=== PATIENT | female | born 1945 | race Caucasian/White ===

== ENCOUNTER → 2020-04-29 17:16 | Outpatient (CLI) | payer MEDICARE, BC, SELFPAY ==
[2020-04-29 17:28] LABS: Basophils % 0.1 % (0.1-2.0); Eosinophils % 0.4 % (0.1-12.0); Hematocrit 31.5 % (37.0-47.0); Lymphocytes # 0.8 K/mm3 (0.7-4.5); Mean Corpuscular HGB Conc 31.8 g/dL (31.8-35.4); Mean Corpuscular Volume 87.8 fl (81-99); Mean Platelet Volume 7.2 fl (7.4-10.4); Monocytes # 0.2 K/mm3 (0.1-1.0); Monocytes % 2.8 % (1.7-9.3); Neutrophils # 6.5 K/mm3 (1.8-7.8); Neutrophils % 86.8 % (37.0-80.0); Platelet Count 343 K/mm3 (142-424); Red Blood Count 3.59 M/mm3 (4.20-5.40); Red Cell Distribution Width 13.7 % (11.5-17.5); White Blood Count 7.5 K/mm3 (4.8-10.8)
[2020-04-29 17:31] LABS: MANUAL DIFFERENTIAL MANUAL DIFFERENTIAL (MANUAL DIFF)
[2020-04-29 17:57] LABS: Chloride 105 mmol/L (98-107); Potassium 4.5 mmoL/L (3.5-5.1); Sodium 137 mmol/L (136-145)
[2020-04-29 18:00] LABS: Alanine Aminotransferase 7 U/L (12-78); Albumin Level 3.7 g/dl (3.5-5.0); Albumin/Globulin Ratio 1.3 (1.1-1.8); Alkaline Phosphatase 76 U/L (38-126); Anion Gap 7.5 mEq/L (5-15); Aspartate Amino Transferase 22 U/L (14-36); Bilirubin,Total 0.4 mg/dl (0.2-1.3); Blood Urea Nitrogen 25 mg/dl (7-17); Carbon Dioxide 29 mmol/L (22.0-30.0); Estimated Glomerular Filt Rate 70 ml/min (>60); GFR (African American) 85 ML/MIN (>60); Globulin 2.9 g/dL (1.3-3.2); Total Protein,Serum 6.6 g/dl (6.3-8.2)
[2020-04-29 18:05] LABS: Acanthocytes 1+; Anisocytosis 1+; Lymphocytes % 16 % (10-50); Monocytes % 3 % (2-9); Neutrophils % 81 % (42-76); Platelet Estimate Normal; Poikilocytosis 1+; Total Cells Counted 100
[2020-04-29 18:07] LABS: Calcium 9.4 mg/dl (8.4-10.2)
[2020-04-29 18:24] LABS: Glucose 113 mg/dl (74-100)
== END ==
PROVIDERS: Visit Provider Family Medicine
DX: R09.89 Other specified symptoms and signs involving the circulatory and respiratory systems (principal)
CPT/HCPCS: 80053; 85007; 85025

== ENCOUNTER → 2020-07-01 17:54 | Outpatient (CLI) | payer MEDICARE, BC, SELFPAY ==
[2020-07-01 18:29] LABS: Basophils % 0.5 % (0.1-2.0); Eosinophils # 0.2 K/mm3 (0.0-0.4); Eosinophils % 3.5 % (0.1-12.0); Hematocrit 25.9 % (37.0-47.0); Lymphocytes # 1.1 K/mm3 (0.7-4.5); Mean Corpuscular Hemoglobin 24.8 pg (27.0-31.2); Mean Corpuscular Volume 82.7 fl (81-99); Mean Platelet Volume 7.5 fl (7.4-10.4); Monocytes # 0.4 K/mm3 (0.1-1.0); Monocytes % 5.6 % (1.7-9.3); Neutrophils # 4.4 K/mm3 (1.8-7.8); Neutrophils % 72.4 % (37.0-80.0); Platelet Count 289 K/mm3 (142-424); Red Blood Count 3.13 M/mm3 (4.20-5.40); Red Cell Distribution Width 14.7 % (11.5-17.5); White Blood Count 6.1 K/mm3 (4.8-10.8)
[2020-07-01 18:31] LABS: Hemoglobin 7.8 g/dL (12.2-16.2)
[2020-07-01 19:47] LABS: Alanine Aminotransferase 8 U/L (12-78); Albumin Level 3.6 g/dl (3.5-5.0); Albumin/Globulin Ratio 1.3 (1.1-1.8); Alkaline Phosphatase 91 U/L (38-126); Anion Gap 15.6 mEq/L (5-15); Aspartate Amino Transferase 27 U/L (14-36); Bilirubin,Total 0.3 mg/dl (0.2-1.3); Blood Urea Nitrogen 22 mg/dl (7-17); Calcium 9.7 mg/dl (8.4-10.2); Carbon Dioxide 26 mmol/L (22.0-30.0); Chloride 103 mmol/L (98-107); Estimated Glomerular Filt Rate 82 ml/min (>60); GFR (African American) 99 ML/MIN (>60); Globulin 2.8 g/dL (1.3-3.2); Glucose 117 mg/dl (74-100); Potassium 4.6 mmoL/L (3.5-5.1); Sodium 140 mmol/L (136-145); Total Protein,Serum 6.4 g/dl (6.3-8.2)
[2020-07-01 20:18] LABS: Thyroid Stimulating Hormone 1.54 uIU/mL (0.465-4.68)
== END ==
PROVIDERS: Visit Provider Family Medicine
DX: D64.9 Anemia, unspecified (principal)
CPT/HCPCS: 80053; 84443; 85025

== ENCOUNTER 2020-07-06 08:05 | Outpatient (CLI) | payer MEDICARE, BC, SELFPAY ==
[2020-07-06 08:17] VITALS: BMI 18.5
[2020-07-06 08:33] LABS: Basophils % 0.7 % (0.1-2.0); Eosinophils # 0.4 K/mm3 (0.0-0.4); Eosinophils % 6.1 % (0.1-12.0); Hematocrit 24.5 % (37.0-47.0); Lymphocytes # 1.3 K/mm3 (0.7-4.5); Mean Corpuscular HGB Conc 29.5 g/dL (31.8-35.4); Mean Corpuscular Hemoglobin 24.8 pg (27.0-31.2); Mean Corpuscular Volume 84.2 fl (81-99); Mean Platelet Volume 8.2 fl (7.4-10.4); Monocytes # 0.3 K/mm3 (0.1-1.0); Monocytes % 5.9 % (1.7-9.3); Neutrophils # 3.7 K/mm3 (1.8-7.8); Neutrophils % 65.3 % (37.0-80.0); Platelet Count 292 K/mm3 (142-424); Red Blood Count 2.91 M/mm3 (4.20-5.40); Red Cell Distribution Width 15.4 % (11.5-17.5); White Blood Count 5.7 K/mm3 (4.8-10.8)
[2020-07-06 08:36] LABS: Hemoglobin 7.2 g/dL (12.2-16.2)
--- NOTE | 2020-07-06 11:00 | PC.NURSE ---
per lab pt has antibodies in her blood and will have to wait for special blood product from [facility]. will take a couple hours before the blood gets to the hospital. pt ok with waiting.
--- NOTE | 2020-07-06 13:40 | PC.NURSE ---
1340-pt decided not to wait on the blood to get back from [facility], pt will return in the am for transfusion; left forearm 22g iv left in arm per pt request wrapped with 2x2 and coban.
== END 2020-07-06 13:40 | disposition home or self-care (01) ==
LOC: INF 08:15
PROVIDERS: Visit Provider Family Medicine
DX: D64.9 Anemia, unspecified (principal)
CPT/HCPCS: 36415; 85025; 86850; 86870

== ENCOUNTER 2020-07-07 08:10 | Outpatient (CLI) | payer MEDICARE, BC, SELFPAY ==
[2020-07-07] VITALS (22 sets, daily range): BP systolic 104–162; BP diastolic 43–83; PULSE 60–68; RESP 18–22; TEMP 36.4–36.8; O2SAT 95–97; BMI 18.5
--- NOTE | 2020-07-07 13:06 | PC.NURSE ---
0855 Transfusion of 1st unit of PRBC's initiated at this time. Lungs with occasional expiratory wheeze noted throughout, no rales. VSS. No edema. IV patent. Reviewed s/s blood transfusion reaction/intolerance with patient who verbalizes understanding. Resp unlabored, O2 in use at 2lpm per nc/pt home O2 dependent. 0955 Pt tolerating blood well with no problems noted and no s/s transfusion reaction. Denies complaints at this time. VSS. 1055 Pt continues to tolerate blood well. Pt denies complaints of problems. No s/s transfusion reaction. Pt dozes at intervals but awakens easily for assessment. IV patent. Lungs consistent with baseline assessment, no rales. 1120 Transfusion of 1st unit of PRBC's complete at this time. VSS. Pt denies complaints.No s/s transfusion reaction or problems seen. 1132 Pt medicated with Lasix 20mg IV at this time per MD order. Pt to receive Lasix 20mg IV after each unit of blood.
--- NOTE | 2020-07-07 13:15 | PC.NURSE ---
1200 Transfusion of 2nd unit of PRBC's initiated at this time. VSS. Reviewed s/s of transfusion reaction/intolerance with pt, who verbs understanding of same. IV patent. Resp unlabored/O2 in use as pt home O2 dependent at 2lpm per nc. Skin warm/dry to touch. Pt denies complaints at this time. Lungs consistent with prior assessment/baseline with scatt exp wheezes, no rales. 1240 Pt up to BSC to void at this time. Pt voided 300ml clear yellow urine. 1300 Pt tolerating 2nd unit of blood well with no s/s transfusion reaction/no problems noted. VSS. IV patent. Pt denies complaints and is talking with staff at intervals. A&Ox3
--- NOTE | 2020-07-07 14:57 | PC.NURSE ---
1400 Pt dozing at intervals/awakens easily for assessment. Pt denies complaints. VSS. O2 in use at 2 lpm per NC/no change in lung sounds or resp status from baseline assessment. Skin warm/dry to touch. No s/s transfusion reaction noted at this time. 1415 2nd unit of blood complete at this time. Pt up to BSC to void/250ml clear yellow urine voided at this time. BP slightly elevated, will monitor/pt denies any headache, dizziness. Patient reports BP elevated at times/took BP medication this am at 0630, which she states she normally takes at 1200 noon. Skin warm/dry to touch. Pt talking/laughing with staff.
[2020-07-07 15:52] LABS: Hemoglobin 10.6 g/dL (12.2-16.2)
--- NOTE | 2020-07-07 16:23 | PC.NURSE ---
1515 VSS. Patient has tolerated blood transfusion well. No s/s transfusion reaction or problems noted. Patient denies complaints. Resp unlabored. Pt will be discharged home once 1 hour post transfusion H&H obtained. Reviewed s/s transfusion reaction with patient who verbalizes understanding.
== END 2020-07-07 15:45 | disposition home or self-care (01) ==
LOC: INF 08:10
PROVIDERS: Visit Provider Family Medicine
DX: D64.9 Anemia, unspecified (principal)
CPT/HCPCS: 36430; 85014; 85018; P9016

== ENCOUNTER → 2020-08-02 18:15 | Outpatient (CLI) | payer MEDICARE, BC, SELFPAY ==
[2020-08-02 18:37] LABS: Basophils % 0.7 % (0.1-2.0); Eosinophils # 0.2 K/mm3 (0.0-0.4); Eosinophils % 3.6 % (0.1-12.0); Hematocrit 32.9 % (37.0-47.0); Hemoglobin 9.9 g/dL (12.2-16.2); Lymphocytes # 1.2 K/mm3 (0.7-4.5); Mean Corpuscular HGB Conc 30.2 g/dL (31.8-35.4); Mean Corpuscular Hemoglobin 26.8 pg (27.0-31.2); Mean Corpuscular Volume 88.9 fl (81-99); Mean Platelet Volume 7.3 fl (7.4-10.4); Monocytes # 0.4 K/mm3 (0.1-1.0); Monocytes % 7.6 % (1.7-9.3); Neutrophils # 3.8 K/mm3 (1.8-7.8); Neutrophils % 67.1 % (37.0-80.0); Platelet Count 268 K/mm3 (142-424); Red Cell Distribution Width 16.7 % (11.5-17.5); White Blood Count 5.7 K/mm3 (4.8-10.8)
== END ==
PROVIDERS: Visit Provider Family Medicine
DX: D64.9 Anemia, unspecified (principal)
CPT/HCPCS: 85025

== ENCOUNTER → 2020-09-02 18:06 | Outpatient (CLI) | payer MEDICARE, BC, SELFPAY ==
[2020-09-02 18:29] LABS: Basophils # 0.1 K/mm3 (0-0.2); Basophils % 1.1 % (0.1-2.0); Eosinophils # 0.2 K/mm3 (0.0-0.4); Eosinophils % 4.7 % (0.1-12.0); Hematocrit 30.6 % (37.0-47.0); Hemoglobin 9.7 g/dL (12.2-16.2); Lymphocytes # 1.1 K/mm3 (0.7-4.5); Lymphocytes % 22.2 % (10-50); Mean Corpuscular HGB Conc 31.7 g/dL (31.8-35.4); Mean Corpuscular Hemoglobin 28.3 pg (27.0-31.2); Mean Corpuscular Volume 89.3 fl (81-99); Mean Platelet Volume 7.7 fl (7.4-10.4); Monocytes # 0.3 K/mm3 (0.1-1.0); Monocytes % 6.5 % (1.7-9.3); Neutrophils # 3.3 K/mm3 (1.8-7.8); Neutrophils % 65.6 % (37.0-80.0); Platelet Count 269 K/mm3 (142-424); Red Blood Count 3.43 M/mm3 (4.20-5.40); Red Cell Distribution Width 16.9 % (11.5-17.5)
== END ==
PROVIDERS: Visit Provider Family Medicine
DX: R62.7 Adult failure to thrive (principal)
CPT/HCPCS: 85025

== ENCOUNTER → 2020-09-14 12:22 | Outpatient (CLI) | payer MEDICARE, BC, SELFPAY ==
--- NOTE | 2020-09-14 12:38 | CT_ITS ---
PROCEDURE: CT ANGIO CHEST CLINCIAL INDICATION: f/u pulm embolism Follow-up pulmonary embolus COMPARISON: No exams were available for comparison TECHNIQUE: IV Contrast: 70ML Isovue 370 Axial images obtained with sagittal and coronal reformats. All CT scans at the facility use one or more dose reduction, viz: automated exposure control, ma/kV adjustment per patient size (including targeted exams where dose is matched to indication, i.e. head), or iterative reconstruction technique. FINDINGS: HEART AND MEDIASTINAL STRUCTURES: There are atherosclerotic changes of the aorta. No evidence of aortic dissection. There is a small saccular aneurysm versus a ulceration along the anterior medial aspect of the descending thoracic aorta the level of the right main pulmonary artery. This measures approximately 1 cm and was described on the previous exam. That study is not available for review performed at an outside institution. No evidence of pulmonary embolus. There is thickening of the pericardium consistent with small pericardial effusion. The thickness measures up to 9 mm. LUNGS AND PLEURAL SPACES: COPD changes. Scattered areas of scarring and/or atelectatic change. BONY STRUCTURES: Degenerative changes thoracic spine UPPER ABDOMEN: . There is a moderate-sized hiatal hernia. Left renal artery stent is present. There is some scarring in the left kidney noted. Left renal artery stent is in place. ADDITIONAL FINDINGS: No other significant abnormalities. IMPRESSION: 1. No evidence of pulmonary embolus. 2. Atherosclerotic changes of the aorta with a small saccular aneurysm versus prominent ulceration along the anterior medial aspect of the descending thoracic aorta. 3. COPD/centrilobular emphysema with scattered areas of scarring and/or atelectatic change. 4. Moderate-sized hiatal hernia Dictated by: Candido Dan MD 09/16/2020 07:01 Candido Dan MD in [place] 09/16/2020 07:01
[2020-09-14 13:09] LABS: Chloride 102 mmol/L (98-107); Potassium 4.4 mmoL/L (3.5-5.1); Sodium 136 mmol/L (136-145)
[2020-09-14 13:12] LABS: Anion Gap 11.4 mEq/L (5-15); Blood Urea Nitrogen 28 mg/dl (7-17); Carbon Dioxide 27 mmol/L (22.0-30.0); Estimated Glomerular Filt Rate 70 ml/min (>60); GFR (African American) 85 ML/MIN (>60)
[2020-09-14 13:13] LABS: Calcium 9.9 mg/dl (8.4-10.2); Glucose 95 mg/dl (74-100)
== END ==
PROVIDERS: PCP Family Medicine; Visit Provider Family Medicine
DX: Z01.818 Encounter for other preprocedural examination (principal); I26.99 Other pulmonary embolism without acute cor pulmonale
CPT/HCPCS: 36415; 71275; 80048; Q9967

== ENCOUNTER → 2020-11-18 17:13 | Outpatient (CLI) | payer MEDICARE, BC, SELFPAY ==
[2020-11-18 17:47] LABS: Basophils % 0.7 % (0.1-2.0); Eosinophils # 0.2 K/mm3 (0.0-0.4); Eosinophils % 3.7 % (0.1-12.0); Hematocrit 34.1 % (37.0-47.0); Hemoglobin 10.4 g/dL (12.2-16.2); Lymphocytes # 1.2 K/mm3 (0.7-4.5); Lymphocytes % 20.5 % (10-50); Mean Corpuscular HGB Conc 30.6 g/dL (31.8-35.4); Mean Corpuscular Hemoglobin 26.6 pg (27.0-31.2); Mean Corpuscular Volume 87.2 fl (81-99); Mean Platelet Volume 7.9 fl (7.4-10.4); Monocytes # 0.4 K/mm3 (0.1-1.0); Monocytes % 6.1 % (1.7-9.3); Platelet Count 318 K/mm3 (142-424); Red Blood Count 3.92 M/mm3 (4.20-5.40); White Blood Count 5.7 K/mm3 (4.8-10.8)
[2020-11-18 17:58] LABS: Chloride 102 mmol/L (98-107)
[2020-11-18 17:59] LABS: Potassium 4.3 mmoL/L (3.5-5.1); Sodium 138 mmol/L (136-145)
[2020-11-18 18:01] LABS: Alanine Aminotransferase 7 U/L (12-78); Aspartate Amino Transferase 26 U/L (14-36); Blood Urea Nitrogen 29 mg/dl (7-17); Estimated Glomerular Filt Rate 61 ml/min (>60); GFR (African American) 74 ML/MIN (>60)
[2020-11-18 18:02] LABS: Albumin Level 4.1 g/dl (3.5-5.0); Albumin/Globulin Ratio 1.4 (1.1-1.8); Alkaline Phosphatase 109 U/L (38-126); Anion Gap 11.3 mEq/L (5-15); Bilirubin,Total 0.4 mg/dl (0.2-1.3); Carbon Dioxide 29 mmol/L (22.0-30.0); Glucose 74 mg/dl (74-100); Iron 44 ug/dL (37-170); Total Protein,Serum 7.1 g/dl (6.3-8.2)
== END ==
PROVIDERS: Visit Provider Family Medicine
DX: D64.9 Anemia, unspecified (principal); R10.9 Unspecified abdominal pain; R62.7 Adult failure to thrive
CPT/HCPCS: 80053; 83540; 85025

== ENCOUNTER → 2020-12-13 08:00 | Outpatient (CLI) | payer MEDICARE, BC, SELFPAY ==
--- NOTE | 2020-12-13 08:04 | CT_ITS ---
PROCEDURE: CT ABDOMEN WO CON CLINICAL HISTORY: Mid to right abd pain Cramping COMPARISON: No exams were available for comparison TECHNIQUE: Axial images obtained with sagittal and coronal reformats. All CT scans at the facility use one or more dose reduction, viz: automated exposure control, ma/kV adjustment per patient size (including targeted exams where dose is matched to indication, i.e. head), or iterative reconstruction technique. FINDINGS: Atelectatic or fibrotic changes are present in the lung bases. There is mild thickening of the pericardium at 4 mm. There is a medium-sized hiatal hernia. The spleen, adrenal glands, and gallbladder have an unremarkable appearance. There is pancreatic atrophy. Cortical scarring involves the left kidney posteriorly and inferiorly. Bilateral renal calcifications are present which are felt to be vascular. A 2 mm stone is present in the upper pole of the right kidney. There is an exophytic 8 mm hypodensity projecting off the right kidney laterally may be due to small cyst. A left renal stent is present in the renal artery. There is a moderate amount of retained colonic feces. There is degenerative disc disease in the lumbar spine. There is mild saccular the dilatation of the infrarenal abdominal aorta at 2.4 cm IMPRESSION: 1. Hiatal hernia. 2. Moderate amount of retained colonic feces 3. Saccular dilatation of the infrarenal abdominal aorta at 2.4 cm.. Dictated by: Candido Dan MD 12/14/2020 14:55 Candido Dan MD in [place] 12/14/2020 14:55
--- NOTE | 2020-12-13 08:04 | US_ITS ---
PROCEDURE: US GALLBLADDER CLINICAL INDICATION: ruq pain for 3 months COMPARISON: CT CT ABDOMEN WO CON from 12/13/2020 FINDINGS: Pancreas: Unremarkable/though a portion of the tail is obscured by bowel gas. Liver: The liver is normal in size and shows slightly overall increased and coarsened echogenicity suggesting mild fatty infiltration. There is appropriate direction of blood flow within a non dilated portal vein. Right kidney: The right kidney measures 8.7 x 4.1 by 5.6 cm and appears sonographically normal. Gallbladder: The gallbladder is normal in size and shows mild diffuse wall thickening. There is a small amount of biliary sludge, there are no definite calcified gallstones seen. The common bile duct is upper limits of normal in caliber. IMPRESSION: Mild diffuse hepatic steatosis, small amount of biliary sludge and mild gallbladder wall thickening suggesting possibly a mild chronic cholecystitis Dictated by: Dr. Didier Quinonez MD 12/13/2020 16:26 Dr. Didier Quinonez MD in [place] 12/13/2020 16:26
== END ==
PROVIDERS: PCP Family Medicine; Visit Provider Family Medicine
DX: R10.11 Right upper quadrant pain (principal)
CPT/HCPCS: 74150; 76705

== ENCOUNTER → 2020-12-23 17:06 | Outpatient (CLI) | payer MEDICARE, BC, SELFPAY ==
[2020-12-23 17:58] LABS: Basophils % 0.5 % (0.1-2.0); Eosinophils # 0.1 K/mm3 (0.0-0.4); Eosinophils % 1.9 % (0.1-12.0); Hematocrit 32.7 % (37.0-47.0); Hemoglobin 10.1 g/dL (12.2-16.2); Lymphocytes % 14.3 % (10-50); Mean Corpuscular HGB Conc 30.8 g/dL (31.8-35.4); Mean Corpuscular Volume 87.7 fl (81-99); Mean Platelet Volume 7.8 fl (7.4-10.4); Monocytes # 0.4 K/mm3 (0.1-1.0); Monocytes % 5.2 % (1.7-9.3); Neutrophils # 5.2 K/mm3 (1.8-7.8); Platelet Count 249 K/mm3 (142-424); Red Blood Count 3.73 M/mm3 (4.20-5.40); Red Cell Distribution Width 15.7 % (11.5-17.5); White Blood Count 6.7 K/mm3 (4.8-10.8)
== END ==
PROVIDERS: Visit Provider Family Medicine
DX: I25.10 Atherosclerotic heart disease of native coronary artery without angina pectoris (principal); R62.7 Adult failure to thrive
CPT/HCPCS: 85025

== ENCOUNTER 2021-05-01 14:10 | Inpatient (IN) | payer MEDICARE, BC, SELFPAY ==
[2021-05-01 14:14] VITALS: BMI 23.0
[2021-05-01 14:40] VITALS: O2SAT 100
--- NOTE | 2021-05-01 14:42 | XR_ITS ---
PROCEDURE INFORMATION: Exam: XR Chest Exam date and time: 05/01/2021 2:42 PM Age: 75 years old Clinical indication: Shortness of breath; Patient HX: SOA, pneumonia, nonsmoker TECHNIQUE: Imaging protocol: XR of the chest. Views: 2 views. COMPARISON: CT ANGIO CHEST 09/14/2020 1:57 PM FINDINGS: Lungs: See Pleural spaces finding. Pleural spaces: o pneumothorax. No significant effusions. Probable hiatal hernia seen. Subtle bibasilar opacities are noted which could represent pneumonia, atelectasis, or infiltrate. Follow-up recommended to ensure resolution. Heart/Mediastinum: See Pleural spaces finding. Bones/joints: Unremarkable. IMPRESSION: Subtle bibasilar opacities are noted which could represent pneumonia, atelectasis, or infiltrate. Follow-up recommended to ensure resolution.
[2021-05-01 15:05] LABS: Coronavirus 19, PCR Not Detected (NotDetected); Influenza A, PCR Not Detected (NotDetected); Influenza B, PCR Not Detected (NotDetected)
[2021-05-01 15:16] LABS: Lymphocytes % 3.6 % (10-50); Mean Corpuscular HGB Conc 30.4 g/dL (31.8-35.4); Mean Corpuscular Hemoglobin 24.5 pg (27.0-31.2); Mean Corpuscular Volume 80.5 fl (81-99); Mean Platelet Volume 8.3 fl (7.4-10.4); Monocytes # 0.9 K/mm3 (0.1-1.0); Monocytes % 3.4 % (1.7-9.3); Neutrophils # 25.3 K/mm3 (1.8-7.8); Neutrophils % 92.9 % (37.0-80.0); Platelet Count 370 K/mm3 (142-424); Red Blood Count 2.98 M/mm3 (4.20-5.40); Red Cell Distribution Width 15.5 % (11.5-17.5); White Blood Count 27.2 K/mm3 (4.8-10.8)
--- NOTE | 2021-05-01 15:20 | ECG_ITS ---
APPROVED REPORT Exam: Resting ECG HR:71 bpm ECG Measurements Heart Rate 71 AXES GA 158 P 79 QRSd 144 QRS -65 QT 430 T 43 QTc 467 Conclusion Normal sinus rhythm Right bundle branch block Left anterior fascicular block Bifascicular block Abnormal ECG Electronically signed by : Linwood Hansen, 05/03/2021 21:40:35
--- NOTE | 2021-05-01 15:21 | HMH.CNCARD ---
History of Present Illness Consult date: 05/01/21 Requesting physician: Shiraz Ames Consult reason: chest pain Chief complaint: CHest pain Additional Medical History:: 1. Ex-smoker, previously smoked at least 1 pack/day for 43 years A. COPD 2. Coronary artery disease with history of coronary artery stenting by Dr. Zamora in the past 3. Hypertension 4. Hyperlipidemia 5. History of pulmonary embolus and DVT with treatment including Xarelto, greater than 1 year ago 6. History of congestive heart failure 7. Renal artery stenosis with history of stenting of the left renal artery History of present illness: 75-year-old white female with known coronary disease, hypertension, hyperlipidemia, COPD and pneumonia who was admitted for complaint of chest pain across the precordium, into the right side underneath the arm and into the right arm that is worse with deep breathing and cough. She reports recent hospitalization at [facility] with a CAT scan of the chest showing evidence of pneumonia. No evidence of pulmonary embolus noted (prior treatment in the past for this). Patient relates she is being admitted for an abnormal lab value of 7.1 (assuming this is her hemoglobin) but I do not have any lab data at this time to confirm. EKG is pending Labs pending [facility] History Medical History: Reports:: Congestive Heart Failure, Chronic Obstructive Pulmonary Disease (COPD), Coronary Artery Disease, Deep Vein Thrombosis, Hiatal Hernia, Home Oxygen, Hyperlipidemia, Hypertension, Lung Disease Denies:: Cancer, Diabetes Mellitus Type 1, Diabetes Mellitus Type 2, MRSA *Have you ever received a pneumonia vaccine?: Yes *Have you received a flu vaccine this season?: Yes Other Medical History: Reports: Anemia, Arthritis, Cataracts, Glaucoma Laterality Cases: Bilateral: Cataract Other Surgeries: Yes: Cardiac Catheterization, Colonoscopy, Coronary Stent, EGD, Hysterectomy-Total Amputation: No - *Social History Last grade of school completed: Advanced degree Smoking Status: Former smoker Tobacco Type: cigarettes # Packs/Day (cigarettes): 1 #Yrs smoked (if former smoker): 43 Alcohol Intake: never Substance Use Type: denies use *Occupational Status:: retired Housing: house Household Members: spouse, family *Travel in the last 8 weeks: None Family Hx:: Cancer, Coronary Artery Disease, Diabetes, Heart Attack, Hypertension, Thyroid Disorder, Substance abuse Meds Home Medications Medication Instructions Recorded Confirmed Type acetaminophen 300 mg-codeine 30 mg 1 tab PO TID PRN #90 tab 11/04/20 05/01/21 Rx tablet guaifenesin 600 mg tablet, 600 mg PO Q12H PRN #60 tab 02/22/21 05/01/21 Rx extended release 12 hr Clopidogrel Bisulfate [Plavix] See Rx Instructions .ROUTE .COMPLEX 05/01/21 05/01/21 History Trazodone HCl See Rx Instructions .ROUTE .COMPLEX 05/01/21 05/01/21 History carvediloL [Carvedilol 12.5mg Tab] See Rx Instructions .ROUTE .COMPLEX 05/01/21 05/01/21 History Allergies Allergy/AdvReac Type Severity Reaction Status Date / Time No Known Allergies Allergy Verified 05/01/21 13:15 Exam I & O for Last 24 hours: Intake & Output 04/29/21 04/30/21 05/01/21 05/02/21 11:59 11:59 11:59 11:59 Weight 151 lb 4 oz - Constitutional no acute distress - *Routine HEENT Exam Head: Present: normocephalic Eye: Present: EOMI, PERRL ENT: Present: mucous membranes moist - *Routine Neck Exam Present: supple. Absent: lymphadenopathy - Routine Chest/Breast/Axilla Exam Chest wall: Present: tenderness - *Routine Respiratory Exam Present: CTA bilaterally - *Routine Cardiovascular Exam Present: RRR - *Routine Abdominal Exam Present: soft, normoactive bowel sounds. Absent: tenderness - *Routine Extremities Exam Absent: cyanosis, clubbing, edema - *Routine Skin Exam Present: warm. Absent: rash - *Routine Neurological Exam Present: alert, oriented X3 Review of Systems - Review of Syst
[2021-05-01 15:23] LABS: Chloride 103 mmol/L (98-107); Potassium 4.7 mmoL/L (3.5-5.1); Sodium 138 mmol/L (136-145)
[2021-05-01 15:24] LABS: Hemoglobin 7.3 g/dL (12.2-16.2)
--- NOTE | 2021-05-01 15:24 | PC.NURSE ---
lab called stating patient had hgb of 7.3 and hematocrit of 24. verified patient name and birthdate, with shanice altman
[2021-05-01 15:25] LABS: MANUAL DIFFERENTIAL MANUAL DIFFERENTIAL (MANUAL DIFF)
[2021-05-01 15:26] LABS: Alanine Aminotransferase 10 U/L (12-78); Albumin Level 3.7 g/dl (3.5-5.0); Albumin/Globulin Ratio 1.2 (1.1-1.8); Alkaline Phosphatase 100 U/L (38-126); Anion Gap 14.7 mEq/L (5-15); Aspartate Amino Transferase 21 U/L (14-36); Bilirubin,Total 0.3 mg/dl (0.2-1.3); Blood Urea Nitrogen 27 mg/dl (7-17); Calcium 9.5 mg/dl (8.4-10.2); Carbon Dioxide 25 mmol/L (22.0-30.0); Creatinine Clearance Estimated 53 mL/min (50-200); Estimated Glomerular Filt Rate 61 ml/min (>60); GFR (African American) 74 ML/MIN (>60); Globulin 3.2 g/dL (1.3-3.2); Glucose 104 mg/dl (74-100); Iron 17 ug/dL (37-170); Total Protein,Serum 6.9 g/dl (6.3-8.2)
--- NOTE | 2021-05-01 15:32 | CA_ITS ---
APPROVED REPORT EXAM: Comprehensive 2D, Doppler, and color-flow Echocardiogram Electrical Technology Instructor: Katherine Cao RVT Ht: 5 ft 8 in Wt: 151lbs BSA: 1.81 BP: 133/68 mmHg Indications: CP,ANEMIA,PNEUMONIA,COPD,ANEMIA,CAD,HX CHF,HOME O2,HTN,HLD,EX SMOKER 2D Dimensions LVOT 2.05 cm (M/F) 1.5-2.5 LA Volume 28.80 mL LA Volume Index 15.91 mL/m2 (M/F) 16-34 M-Mode Dimensions RVDd 3.19 cm (0.9-2.6) LA Diam 4.05 cm (1.9-4.0) LVDd 3.75 cm (3.5-5.7) Ao Diam 3.32 cm (2.0-3.7) LVDs 2.65 cm (3.5-5.7) IVSd 1.67 cm (0.6-1.1) PWd 0.91 cm (0.6-1.1) EF (Teich) 57.00% FS 29.30% EDV (Teich) 60.00 mL TAPSE 2.64 (<1.7) ESV (Teich) 25.80 mL LV Diastology E Decel Time 150.00 (160-240 msec) E/A Ratio 0.8 MED E' 4.40 (< 7 cm/sec) E'/MED E' Ratio 16.27 (>14) LAT E' 8.70 (<10 cm/sec) E/LAT E' Ratio 8.23 (>14) Aortic Valve AO Peak GR. 5.40 mmHg Mitral Valve MV E Max Joseph. 72.00 (40-130 cm/s) MV A Velocity 88.00 (40-130 cm/s) E/A Ratio 0.82 MV Decel. Time 150.00 (160-240 ms) MV PHT 44.00 ms Pulmonary Valve PV Peak Velocity 66.00 (50-150 cm/s) Left Ventricle Left atrium is mildly enlarged, left ventricle is normal size, mild concentric left ventricular hypertrophy, visually estimated ejection fraction 55% with no regional wall motion abnormality, diastolic parameters are inconclusive. Right Ventricle Right atrium and right ventricle are mildly enlarged with normal contractility. Aortic Valve Aortic valve is minimally thickened and fibrosed. There is no aortic stenosis or aortic insufficiency. Mitral Valve Mitral valve grossly normal, there is mild mitral regurgitation. Tricuspid Valve Tricuspid grossly normal, there is mild tricuspid regurgitation, tricuspid regurgitation jet velocity is inadequate for calculation of the right ventricular systolic pressure. Pulmonic Valve Pulmonic valve is poorly visualized. Great Vessels Aortic root is normal size. Pericardium No significant pericardial effusion noted. Conclusion 1. Mild biatrial abdomen, normal left ventricular size, mild concentric left ventricular hypertrophy, visually estimated ejection fraction 55% with no regional wall motion abnormality, diastolic parameters are inconclusive. 2. Mildly enlarged right ventricle with normal contractility. 3. Mild mitral and tricuspid regurgitation. 4. No significant pericardial effusion noted. Electronically signed by : Ric Oconnor, 05/01/2021 22:57:22
[2021-05-01 15:35] LABS: ABG Base Excess -0.7 mmol/L (-2.4-2.3); ABG Oxygen Saturation 97 % (90-100); ABG PCO2 39.1 mmhg (35.0-45.0); ABG PH 7.41 mmol/L (7.35-7.45); ABG PO2 88.8 mmhg (80-100); ABG TCO2 25.2 mmhg (23-27)
[2021-05-01 15:36] LABS: Allen's Test Acceptable; Oxygen 3 LPM NC %; Source Left Radial
[2021-05-01 15:37] LABS: Total Iron Binding Capacity 334 ug/dL (265-497)
[2021-05-01 15:38] LABS: Troponin I < 0.01 ng/ml (0.00-0.034)
[2021-05-01 15:43] LABS: Procalcitonin 0.397 ng/mL (0.0-2.0)
--- NOTE | 2021-05-01 15:52 | PC.NURSE ---
notified of racqueltccynthia h/h. ordered to transfuse 3 units
[2021-05-01 16:00] VITALS: BP 160/95; PULSE 70; PULSE 81; RESP 18; TEMP 37.1; O2SAT 100
[2021-05-01 17:30] LABS: Lymphocytes % 6 % (10-50); Monocytes % 3 % (2-9); Neutrophils % 89 % (42-76); Total Cells Counted 100
[2021-05-01 17:31] LABS: Microcytosis 1+; Platelet Estimate Normal
[2021-05-01 17:32] LABS: Hypochromasia 2+
--- NOTE | 2021-05-01 17:54 | HMH.HP ---
*Admission Date: 05/01/21 *Chief complaint: pneumonia and anemia *History of present illness: Patient is a 75-year-old white female, well-known to me from the office, who was seen today for ER follow-up. She presented to the emergency room at [facility] yesterday for intractable coughing and right-sided chest pain. Her work-up included a chest x-ray which showed bibasilar infiltrative processes, a CTA of her chest which was negative for pulmonary emboli, and venipuncture lab work showed a hemoglobin of 7.1. She was sent out with a prescription for Tussionex and Levaquin. She declined admission there in favor of follow-up with us. Patient has a history of stented coronary disease, and is on Plavix. Patient has a history of multiple pulmonary emboli, and had been on Xarelto in the past. Once resolution of the emboli was demonstrated on CTA the Xarelto was stopped. There was a point when Xarelto and Plavix overlapped, and during that time she required transfusion of several units of packed red cells. Patient relays that within the past few years she has had upper and lower endoscopy by Dr. Barclay in [place]. She relays that these were unremarkable. He did have her slated for a gastric emptying time, which she did not complete. She has had no evidence of hematemesis or dark stool. Her principal complaint is intractable coughing with right sided chest pain. She is admitted for further evaluation and treatment. Patient has a longstanding history of COPD, is oxygen dependent at home, and has a propensity for pneumonia. [facility] History Medical History: Reports:: Congestive Heart Failure, Chronic Obstructive Pulmonary Disease (COPD), Coronary Artery Disease, Deep Vein Thrombosis, Hiatal Hernia, Home Oxygen, Hyperlipidemia, Hypertension, Lung Disease Denies:: Cancer, Diabetes Mellitus Type 1, Diabetes Mellitus Type 2, MRSA *Have you ever received a pneumonia vaccine?: Yes *Have you received a flu vaccine this season?: Yes Other Medical History: Reports: Anemia, Arthritis, Cataracts, Glaucoma Laterality Cases: Bilateral: Cataract Other Surgeries: Yes: Cardiac Catheterization, Colonoscopy, Coronary Stent, EGD, Hysterectomy-Total Amputation: No - *Social History Last grade of school completed: Advanced degree Smoking Status: Former smoker Tobacco Type: cigarettes # Packs/Day (cigarettes): 1 #Yrs smoked (if former smoker): 43 Alcohol Intake: never Substance Use Type: denies use *Occupational Status:: retired Housing: house Household Members: spouse, family *Travel in the last 8 weeks: None Family Hx:: Cancer, Coronary Artery Disease, Diabetes, Heart Attack, Hypertension, Thyroid Disorder, Substance abuse Review of Systems - Constitutional Reports anorexia, Reports fatigue, Reports lack of energy, Reports weakness - Eyes Denies change in vision - ENT Reports dizziness, Reports hoarseness - *Cardiovascular Reports chest pain, Reports shortness of breath - *Respiratory Reports chest congestion, Reports cough, Reports shortness of breath, Reports shortness of breath with activity, Reports pain on inspiration, Reports pain with cough, Denies coughing up blood - *Gastrointestinal Denies abdominal pain, Denies change in stools, Denies coffee ground vomit, Denies bright, red blood in stools, Denies black, tarry stools, Denies constant urge to pass stool - *Genitourinary Reports side pain, Denies difficulty urinating - *Musculoskeletal Reports joint pain, Reports decreased muscle mass, Reports back pain, Reports muscle weakness - Integumentary/Breasts Reports unusual bruising, Denies yellowing of the skin - *Neurologic Reports unsteadiness, Reports weakness - Psychiatric Denies behavioral changes - Endocrine Denies rapid, pounding, or irregular heartbeat - Hematologic/Lymphatic Reports easy bruising - Allergic/Immunologic Denies hives Meds Home Medications Medication Instructions Recorded Confirmed Type
--- NOTE | 2021-05-01 19:38 | PC.NURSE ---
called lab to check on status of blood ordered earlier in day. was informed patient has two different antibodies and [facility] has just picked sample up for further matching. patient awake alert, orient and asymptomatic
[2021-05-01 20:00] VITALS: BP 156/51; PULSE 70; RESP 20; TEMP 36.7; O2SAT 100
--- NOTE | 2021-05-01 20:12 | PC.NURSE ---
o2 sats 100 on 3 l nc, chantell states she wears 2 l at home. oxygen decreased to 2 l nc
--- NOTE | 2021-05-01 20:56 | PC.NURSE ---
Snack passed and trash pulled
[2021-05-01 22:00] VITALS: BP 138/55; PULSE 68; RESP 20; O2SAT 93
[2021-05-02] VITALS (37 sets, daily range): BP systolic 121–225; BP diastolic 51–119; PULSE 59–99; RESP 15–26; TEMP 36.6–37.3; O2SAT 93–100; BMI 23.3
--- NOTE | 2021-05-02 06:00 | XR_ITS ---
PROCEDURE INFORMATION: Exam: XR Chest Exam date and time: 05/02/2021 6:00 AM Age: 75 years old Clinical indication: Cough and shortness of breath and other: Pneumnia; Patient HX: Pneumonia TECHNIQUE: Imaging protocol: XR of the chest. Views: 1 view. COMPARISON: CR XR CHEST 2V 05/01/2021 4:44 PM FINDINGS: Lungs: Unremarkable. No consolidation. There is no focal mass. Pleural spaces: Unremarkable. No pleural effusion. No pneumothorax. Heart/Mediastinum: Moderate hiatal hernia. Bones/joints: Unremarkable. There is no acute fracture present. IMPRESSION: 1. No evidence for acute cardiac or pulmonary process. 2. Moderate hiatal hernia.
--- NOTE | 2021-05-02 06:44 | PC.NURSE ---
received blood from [facility] 1st unit of blood started at 0610, no reactions noted
--- NOTE | 2021-05-02 07:43 | P.CONPHA_ITS ---
[facility] Pharmacy VTE Monitoring - Patient Demographics Admission date: 05/01/21 Report Date: 05/02/21 Time: 07:43 Allergies/Adverse Reactions: Patient Allergies No Known Allergies Allergy (Verified 05/01/21 13:15) Height: 1.73 m Weight: 69.655 kg Patient Problems: Current Active Problems Chest pain (Acute) Pneumonia (Acute) Stented coronary artery (Acute) Anemia (Acute) CAD (coronary artery disease) (Acute) COPD (chronic obstructive pulmonary disease) (Acute) - VTE Risk Labs: VTE Related Lab Results Hgb 7.3 g/dL (12.2-16.2) L* 05/01/21 14:45 Hct 24.0 % (37.0-47.0) L 05/01/21 14:45 Plt Count 370 K/mm3 (142-424) 05/01/21 14:45 BUN 27 mg/dl (7-17) H 05/01/21 14:45 Creatinine 0.90 mg/dl (0.52-1.04) 05/01/21 14:45 Estimated Creat Clear 53 mL/min (50-200) 05/01/21 14:45 Was VTE Risk Assessment Performed: Yes VTE Score: 5 VTE Risk Level: Low Risk Clinical Trial Participant: No - Prophylaxis VTE Prophylaxis Ordered?: Yes Types of VTE Prophylaxis: TEDS Knee High
--- NOTE | 2021-05-02 07:52 | HMH.PHAINT ---
verified home medication list using list from [facility] in [place]
[2021-05-02 08:23] LABS: Microscopic, Urine URINE MICROSCOPIC (MICROSCOPIC)
[2021-05-02 08:24] LABS: Appearance,Urine CLEAR (Clear); Bilirubin,Urine Negative (Negative); Blood, Urine Negative (Negative); Color,Urine YELLOW (Yellow); Glucose,Urine (UA) Negative (Negative); Ketones,Urine Negative (Negative); Leukocyte Esterase,Urine TRACE (Negative); Nitrate,Urine Negative (Negative); Protein,Urine Negative (Negative); Specific Gravity, Urine 1.025 (1.005-1.030); Urobilinogen,Urine 0.2 EU/dl (0.2)
--- NOTE | 2021-05-02 08:25 | CT_ITS ---
PROCEDURE: CT ANGIO CHEST PE PROTOCOL CLINCIAL INDICATION: SOA Shortness of air and pneumonia COMPARISON: CT CT ANGIO CHEST from 09/14/2020 TECHNIQUE: IV Contrast: 70ML Isovue 370 Axial images obtained with sagittal and coronal reformats. All CT scans at the facility use one or more dose reduction, viz: automated exposure control, ma/kV adjustment per patient size (including targeted exams where dose is matched to indication, i.e. head), or iterative reconstruction technique. FINDINGS: HEART AND MEDIASTINAL STRUCTURES: No evidence of pulmonary embolus, aortic aneurysm, or aortic dissection. Calcific plaque involves the aorta. There are some small nodes in the donna on both sides LUNGS AND PLEURAL SPACES: COPD and centrilobular emphysema with scattered areas of scarring. Consolidation is present in the right lower lobe anteriorly suggesting an area of pneumonia. There are atelectatic changes in the right lung base posteriorly with trace right effusion. There is a moderate-sized hiatal hernia on the left. This contains 1/3 to 1/2 of the stomach. Atelectatic changes are present in the left lower lobe. BONY STRUCTURES: Degenerative changes thoracic spine UPPER ABDOMEN: Moderate to large hiatal hernia with fluid-filled stomach. Scarring is present involving the left kidney ADDITIONAL FINDINGS: No other significant abnormalities. IMPRESSION: 1. No evidence of pulmonary embolus. 2. Right lower lobe pneumonia. 3. Right basilar atelectasis with trace right effusion 4. Moderate to large-sized hiatal hernia with left basilar atelectasis Dictated by: Candido Dan MD 05/02/2021 10:16 Candido Dan MD in [place] 05/02/2021 10:16
--- NOTE | 2021-05-02 08:26 | HMH.ACPN2 ---
Internal Medicine - PN: Subj *Date: 05/02/21 *Time: 11:01 Interval history: 75-year-old female patient sitting up in bed, she is more short of breath today than she was yesterday and she also admits she is more short of breath. Oxygen saturation 96% on 2 L per nasal cannula. She denies any current chest pain or events during the night. We will send her down for a CT of the chest with PE protocol. Exam Vital signs and Labs for Last 24 Hours: Temp Pulse Resp BP Pulse Ox 98.8 F 85 20 206/79 H 97 05/02/21 07:38 05/02/21 07:10 05/02/21 07:25 05/02/21 07:25 05/02/21 07:53 Laboratory Results - last 24 hr 05/01/21 14:43: Specimen Source Left radial, O2 % 3 lpm nc, ABG pH 7.41, ABG pCO2 39.1, ABG pO2 88.8, ABG HCO3 24.0, ABG Total CO2 25.2, ABG O2 Saturation 97, ABG Base Excess -0.7, Candido Test Acceptable 05/01/21 14:45: WBC 27.2 H*, RBC 2.98 L, Hgb 7.3 L*, Hct 24.0 L, MCV 80.5 L, MCH 24.5 L, MCHC 30.4 L, RDW 15.5, Plt Count 370, MPV 8.3, Neut % (Auto) 92.9 H, Lymph % (Auto) 3.6 L, [place] % (Auto) 3.4, Eos % (Auto) 0.0 L, Baso % (Auto) 0.0 L, Neut # (Auto) 25.3 H, Lymph # (Auto) 1.0, [place] # (Auto) 0.9, Eos # (Auto) 0.0, Baso # (Auto) 0.0, Total Counted 100, Neutrophils % (Manual) 89 H, Band Neutrophils % 2.0, Lymphocytes % (Manual) 6 L, Monocytes % (Manual) 3, Platelet Estimate Normal, Hypochromasia 2+, Microcytosis 1+ 05/01/21 14:45: Sodium 138, Potassium 4.7, Chloride 103, Carbon Dioxide 25, Anion Gap 14.7, BUN 27 H, Creatinine 0.90, Estimated Creat Clear 53, Estimated GFR 61, Est GFR ( Amer) 74, Glucose 104 H, Calcium 9.5, Iron 17 L, TIBC 334, Iron Saturation 5.47710 L, Total Bilirubin 0.3, AST 21, ALT 10 L, Alkaline Phosphatase 100, Troponin I < 0.01, Total Protein 6.9, Albumin 3.7, Globulin 3.2, Albumin/Globulin Ratio 1.2 05/01/21 14:45: Procalcitonin 0.397 05/01/21 14:55: SARS-CoV-2 (PCR) Not detected, Influenza A Untype (PCR) Not detected, Influenza Type B (PCR) Not detected 05/01/21 15:50: D-Dimer 1.00 H 05/01/21 15:50: Blood Type O Positive, Antibody Screen Negative, Crossmatch (AHG) See Detail I & O for Last 24 hours: Intake & Output 04/29/21 04/30/21 05/01/21 05/02/21 23:59 23:59 23:59 23:59 Intake Total 240 / 240 360 / 360 Output Total 300 / 300 Balance 240 / -60 60 / 60 Weight 151 lb 4 oz 153 lb 9 oz - Constitutional mild distress - *Routine HEENT Exam Head: Present: normocephalic Eye: Present: EOMI ENT: Present: mucous membranes moist - *Routine Neck Exam Present: trachea midline. Absent: tracheal deviation - *Routine Respiratory Exam Present: decreased breath sounds - *Routine Cardiovascular Exam Present: RRR - *Routine Abdominal Exam Present: soft, normoactive bowel sounds. Absent: tenderness, rigid - *Routine Extremities Exam Present: full ROM, pulses intact. Absent: cyanosis, clubbing, edema - *Routine Skin Exam Present: intact, dry, warm. Absent: cyanosis, erythema - *Routine Neurological Exam Present: alert, oriented X3. Absent: motor deficit, altered mental status - Routine Psychiatric Exam Present: normal affect, normal thought process. Absent: auditory hallucinations, visual hallucinations Assessment and Plan (1) Anemia Status: Acute Qualifiers: Anemia type: unspecified type Qualified Code(s): D64.9 - Anemia, unspecified Category: Medical Code(s): D64.9 - Anemia, unspecified (2) Pneumonia Status: Acute Qualifiers: Pneumonia type: due to unspecified organism Laterality: left Lung location: lower lobe of lung Qualified Code(s): J18.9 - Pneumonia, unspecified organism Category: Medical Code(s): J18.9 - Pneumonia, unspecified organism (3) COPD (chronic obstructive pulmonary disease) Status: Acute Qualifiers: COPD type: unspecified COPD Qualified Code(s): J44.9 - Chronic obstructive pulmonary disease, unspecified Category: Medical Code(s): J44.9 - Chronic obstructive pulmonary disease, unspecified
[2021-05-02 08:41] LABS: Squamous Epithelial Cell,Urine Occasional #/hpf (0-5)
--- NOTE | 2021-05-02 10:06 | HMH.PNCARD ---
Subjective Date: 05/02/21 Time: 10:06 Principal diagnosis: CP, SOA Interval history: 75-year-old white female in bed in no acute distress but continues to have complaint of right-sided chest pain with movement or deep breathing. She just returned from CT angio for evaluation of pulmonary embolus with no results at this time. Echo results: 1. Mild biatrial abdomen, normal left ventricular size, mild concentric left ventricular hypertrophy, visually estimated ejection fraction 55% with no regional wall motion abnormality, diastolic parameters are inconclusive. 2. Mildly enlarged right ventricle with normal contractility. 3. Mild mitral and tricuspid regurgitation. 4. No significant pericardial effusion noted. Electronically signed by : Ric Oconnor, 05/01/2021 22:57:22 Exam Vital signs and Labs for Last 24 Hours: Temp Pulse Resp BP Pulse Ox 98.4 F 96 H 24 204/110 H 97 05/02/21 09:30 05/02/21 08:40 05/02/21 09:30 05/02/21 09:30 05/02/21 09:30 Laboratory Results - last 24 hr 05/01/21 05:44: Urine Color Yellow, Urine Appearance Clear, Urine pH 5.0, Ur Specific [place] 1.025, Urine Protein Negative, Urine Glucose (UA) Negative, Urine Ketones Negative, Urine Blood Negative, Urine Nitrate Negative, Urine Bilirubin Negative, Urine Urobilinogen 0.2, Ur Leukocyte Esterase Trace, Urine RBC None, Urine WBC None, Ur Squamous Epith Cells Occasional, Urine Bacteria None 05/01/21 14:43: Specimen Source Left radial, O2 % 3 lpm nc, ABG pH 7.41, ABG pCO2 39.1, ABG pO2 88.8, ABG HCO3 24.0, ABG Total CO2 25.2, ABG O2 Saturation 97, ABG Base Excess -0.7, Candido Test Acceptable 05/01/21 14:45: WBC 27.2 H*, RBC 2.98 L, Hgb 7.3 L*, Hct 24.0 L, MCV 80.5 L, MCH 24.5 L, MCHC 30.4 L, RDW 15.5, Plt Count 370, MPV 8.3, Neut % (Auto) 92.9 H, Lymph % (Auto) 3.6 L, [place] % (Auto) 3.4, Eos % (Auto) 0.0 L, Baso % (Auto) 0.0 L, Neut # (Auto) 25.3 H, Lymph # (Auto) 1.0, [place] # (Auto) 0.9, Eos # (Auto) 0.0, Baso # (Auto) 0.0, Total Counted 100, Neutrophils % (Manual) 89 H, Band Neutrophils % 2.0, Lymphocytes % (Manual) 6 L, Monocytes % (Manual) 3, Platelet Estimate Normal, Hypochromasia 2+, Microcytosis 1+ 05/01/21 14:45: Sodium 138, Potassium 4.7, Chloride 103, Carbon Dioxide 25, Anion Gap 14.7, BUN 27 H, Creatinine 0.90, Estimated Creat Clear 53, Estimated GFR 61, Est GFR ( Amer) 74, Glucose 104 H, Calcium 9.5, Iron 17 L, TIBC 334, Iron Saturation 5.61189 L, Total Bilirubin 0.3, AST 21, ALT 10 L, Alkaline Phosphatase 100, Troponin I < 0.01, Total Protein 6.9, Albumin 3.7, Globulin 3.2, Albumin/Globulin Ratio 1.2 05/01/21 14:45: Procalcitonin 0.397 05/01/21 14:55: SARS-CoV-2 (PCR) Not detected, Influenza A Untype (PCR) Not detected, Influenza Type B (PCR) Not detected 05/01/21 15:50: D-Dimer 1.00 H 05/01/21 15:50: Blood Type O Positive, Antibody Screen Negative, Crossmatch (AHG) See Detail I & O for Last 24 hours: Intake & Output 04/29/21 04/30/21 05/01/21 05/02/21 11:59 11:59 11:59 11:59 Intake Total 607.87 / 607.87 Output Total 300 / 300 Balance 307.87 / 307.87 Weight 153 lb 9 oz - Constitutional no acute distress - *Routine HEENT Exam Head: Present: normocephalic Eye: Present: EOMI, PERRL ENT: Present: mucous membranes moist - *Routine Neck Exam Present: supple. Absent: lymphadenopathy - Routine Chest/Breast/Axilla Exam Chest wall: Present: tenderness - *Routine Respiratory Exam Present: decreased breath sounds, CTA bilaterally - *Routine Cardiovascular Exam Present: RRR, tachycardia - *Routine Abdominal Exam Present: soft, normoactive bowel sounds. Absent: tenderness - *Routine Extremities Exam Absent: cyanosis, clubbing, edema - *Routine Skin Exam Present: warm. Absent: rash - *Routine Neurological Exam Present: alert, oriented X3 Progress Note: A&P (1) Anemia Status: Acute (2) Pneumonia Status: Acute (3) COPD (chronic obstructive pulmonary disease) Status: Acute (4) CAD (coronar
[2021-05-02 11:59] LABS: Lactate Arterial 1.1 mmol/L (0.4-2.0)
[2021-05-02 14:32] LABS: Microscopic,Cath URINE MICROSCOPIC (MICROSCOPIC)
[2021-05-02 14:36] LABS: Appearance,Urine/Cath CLEAR (Clear); Bilirubin,Cath Negative (Negative); Blood, Urine/Cath Negative (Negative); Color,Urine/Cath YELLOW (Yellow); Glucose,Urine/Cath (UA) Negative (Negative); Ketones,Urine/Cath Negative (Negative); Leukocyte Esterase,Cath Negative (Negative); Nitrate,Cath Negative (Negative); PH,Urine/Cath 5.5 (5.0-8.5); Protein,Urine/Cath TRACE (Negative); Urobilinogen,Cath 0.2 EU/dl (0.2)
[2021-05-02 15:18] LABS: Basophils % 0.2 % (0.1-2.0); Eosinophils % 0.2 % (0.1-12.0); Hematocrit 30.7 % (37.0-47.0); Hemoglobin 9.6 g/dL (12.2-16.2); Lymphocytes % 6.1 % (10-50); Mean Corpuscular HGB Conc 31.2 g/dL (31.8-35.4); Mean Corpuscular Hemoglobin 26.4 pg (27.0-31.2); Mean Corpuscular Volume 84.7 fl (81-99); Mean Platelet Volume 7.1 fl (7.4-10.4); Monocytes # 0.9 K/mm3 (0.1-1.0); Monocytes % 5.5 % (1.7-9.3); Neutrophils # 13.8 K/mm3 (1.8-7.8); Neutrophils % 88.1 % (37.0-80.0); Platelet Count 302 K/mm3 (142-424); Red Blood Count 3.62 M/mm3 (4.20-5.40); Red Cell Distribution Width 15.4 % (11.5-17.5); White Blood Count 15.7 K/mm3 (4.8-10.8)
[2021-05-02 15:22] LABS: MANUAL DIFFERENTIAL MANUAL DIFFERENTIAL (MANUAL DIFF)
[2021-05-02 15:45] LABS: Hypochromasia 3+; Lymphocytes % 4 % (10-50); Monocytes % 3 % (2-9); Neutrophils % 89 % (42-76); Platelet Estimate Normal; Total Cells Counted 100
[2021-05-02 16:28] LABS: Alanine Aminotransferase 7 U/L (12-78); Albumin Level 3.4 g/dl (3.5-5.0); Albumin/Globulin Ratio 1.1 (1.1-1.8); Alkaline Phosphatase 76 U/L (38-126); Anion Gap 13.5 mEq/L (5-15); Aspartate Amino Transferase 28 U/L (14-36); Bilirubin,Total 0.7 mg/dl (0.2-1.3); Blood Urea Nitrogen 30 mg/dl (7-17); Calcium 8.8 mg/dl (8.4-10.2); Carbon Dioxide 27 mmol/L (22.0-30.0); Chloride 102 mmol/L (98-107); Creatinine Clearance Estimated 53 mL/min (50-200); Estimated Glomerular Filt Rate 54 ml/min (>60); GFR (African American) 65 ML/MIN (>60); Glucose 96 mg/dl (74-100); Potassium 4.5 mmoL/L (3.5-5.1); Sodium 138 mmol/L (136-145); Total Protein,Serum 6.4 g/dl (6.3-8.2)
--- NOTE | 2021-05-02 18:27 | PC.NURSE ---
PT IS SITTING UP IN THE CHAIR. PT HAS HAD SOME ISSUES WITH PAIN THIS SHIFT. MEDICATED PER DEC. BP HAS BEEN ELEVATED T/O THE SHIFT. ROBB LINTON WAS NOTIFIED ABOUT BP DURING SECOND UNIT OF PRBC'S AND HE ORDERED LASIX 40 MG IV. CATHETER INSERTED. 1 HOUR AFTER LASIX BP WAS 140/62. PT DIURESED 1750 ML'S. HGB AFTER SECOND UNIT WAS REPORTED TO PCP AND THEY STATED IT WOULD BE OKAY TO KEEP 3RD UNIT OF PRBC'S ON HOLD FOR NOW. PT HAS BEEN EATING AND DRINKING FAIR. ALERT AND ORIENTED X4. LUNG SOUNDS HAVE SCATTERED WHEEZES WITH FINE CRACKLES IN THE BILATERAL BASES. ABDOMEN SOFT/NON TENDER WITH ACTIVE BOWEL SOUNDS. PT WAS ABLE TO GET UP TO THE CHAIR WITH 1 ASSIST. WILL CONTINUE TO MONITOR.
--- NOTE | 2021-05-02 23:51 | PC.NURSE ---
RA SATS WERE 90% RETURNED PT TO 3L NC
[2021-05-03] VITALS (10 sets, daily range): BP systolic 92–199; BP diastolic 54–84; PULSE 70–110; RESP 16–21; TEMP 36.9–38.3; O2SAT 92–96; BMI 23.0
--- NOTE | 2021-05-03 04:41 | PC.NURSE ---
Pt is A/O x4. Remained on 3L NC with stats in high 90's all night. Pt has complained of pain x3 this shift with relief with meds per MAR. Pt states the pain is mostly right sided flank area. Stated this pain is not a new onset. Pt has a rincon draining clear, yellow urine. Pt has remained in the bed all shift. Call light within reach, no concerns at this time.
[2021-05-03 07:55] LABS: Basophils % 0.3 % (0.1-2.0); Eosinophils # 0.1 K/mm3 (0.0-0.4); Hematocrit 30.6 % (37.0-47.0); Hemoglobin 9.9 g/dL (12.2-16.2); Lymphocytes # 1.6 K/mm3 (0.7-4.5); Lymphocytes % 11.5 % (10-50); Mean Corpuscular HGB Conc 32.3 g/dL (31.8-35.4); Mean Corpuscular Hemoglobin 26.7 pg (27.0-31.2); Mean Corpuscular Volume 82.7 fl (81-99); Mean Platelet Volume 7.4 fl (7.4-10.4); Monocytes # 0.7 K/mm3 (0.1-1.0); Monocytes % 5.2 % (1.7-9.3); Neutrophils # 11.3 K/mm3 (1.8-7.8); Platelet Count 282 K/mm3 (142-424); Red Cell Distribution Width 16.3 % (11.5-17.5); White Blood Count 13.8 K/mm3 (4.8-10.8)
[2021-05-03 08:41] LABS: Anion Gap 10.7 mEq/L (5-15); Blood Urea Nitrogen 24 mg/dl (7-17); Calcium 8.9 mg/dl (8.4-10.2); Carbon Dioxide 27 mmol/L (22.0-30.0); Chloride 101 mmol/L (98-107); Creatinine Clearance Estimated 53 mL/min (50-200); Estimated Glomerular Filt Rate 70 ml/min (>60); GFR (African American) 85 ML/MIN (>60); Glucose 108 mg/dl (74-100); Potassium 4.7 mmoL/L (3.5-5.1); Sodium 134 mmol/L (136-145)
--- NOTE | 2021-05-03 09:16 | CT_ITS ---
PROCEDURE: CT ABDOMEN PELVIS WO CON CLINICAL INDICATION: flank pain Left flank pain COMPARISON: CT CT ABDOMEN WO CON from 12/13/[address] ANGIO CHEST PE PROTOCOL from 05/02/2021 TECHNIQUE: Axial images obtained with sagittal and coronal reformats. All CT scans at the facility use one or more dose reduction, viz: automated exposure control, ma/kV adjustment per patient size (including targeted exams where dose is matched to indication, i.e. head), or iterative reconstruction technique. FINDINGS: LOWER THORAX: Coronary artery calcifications are present. There is a large left-sided hiatal hernia. Pneumonia is present in the right lower lobe anteriorly. An area of cavitation has developed in the pneumonia the the with a cavity measuring approximately 2 cm. Atelectatic changes are present in the right lung base and there is a small right pleural effusion. There is also thickening of the pericardium now noted consistent with pericardial effusion measuring 16 mm in thickness. ABDOMEN & PELVIS: The liver, spleen, and adrenal glands are unremarkable. There is some hyperdensity along the posterior aspect of the gallbladder suggesting sludge and/or stones. There is cortical thinning of the left kidney posteriorly consistent with scarring. There is a 2 mm calcification in the mid aspect of the right kidney and may represent a small stone or dystrophic calcification in the renal parenchyma. There is diffuse motion artifact which does obscure fine detail. There is a prominent amount of retained colonic feces. Quevedo catheter is present. There has been a prior hysterectomy. Small amount fluid is present within the pelvis. There is colonic diverticulosis but no evidence of diverticulitis. No evidence of appendicitis the There is focal protrusion along the mid aspect of the abdominal aorta toward the left. The saccular area of dilatation measures approximately 14 mm and is not significantly changed consistent with a saccular aneurysm. The total transverse dimension of the aorta at this region is 2.5 cm unchanged Multilevel lumbar spondylosis with degenerative disc disease. Degenerative changes of the hips. IMPRESSION: 1. Right lower lobe pneumonia now shows an area of cavitation 2. Interval development of a small pericardial effusion 3. Constipation 4. 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 No retroperitoneal hemorrhage apparent Dictated by: Candido Dan MD 05/03/2021 12:05 Candido Dan MD in [place] 05/03/2021 12:05
--- NOTE | 2021-05-03 10:44 | HMH.ITSTN ---
patient brought down to ct, all 3 iv's flushed, and not working adequately for ct injector. KAYLIE Milan came down and started new iv. iv was flushed again prior to injecting contrast and had blown. pt request to proceed without iv contrast.
--- NOTE | 2021-05-03 13:30 | XR_ITS ---
PROCEDURE: XR CHEST PORTABLE PICC PLAC CLINICAL HISTORY: Confirm PICC line placement COMPARISON: CR XR CHEST 2V from 05/01/2021 CR XR CHEST PORTABLE from 05/02/[address] ANGIO CHEST PE PROTOCOL from 05/02/2021 FINDINGS: Left upper extremity PICC line has been inserted. The tip is in the region of the SVC. There is a hiatal hernia. Increased density is present in the right lung base laterally with consolidation in the right lower with an area lucency consistent with necrosis or abscess development. IMPRESSION: PICC line in good position. Increasing consolidation in the right lower lobe consistent with worsening pneumonia with an area of necrosis or abscess development Dictated by: Candido Dan MD 05/03/2021 16:39 Candido Dan MD in [facility] 05/03/2021 16:39
--- NOTE | 2021-05-03 13:32 | HMH.ACPN2 ---
Internal Medicine - PN: Subj *Date: 05/03/21 *Time: 08:45 Interval history: pt c/o pain in rt flank Exam Vital signs and Labs for Last 24 Hours: Temp Pulse Resp BP Pulse Ox 98.4 F 110 H 19 92/54 L 92 L 05/03/21 11:44 05/03/21 11:44 05/03/21 11:44 05/03/21 11:44 05/03/21 11:44 Laboratory Results - last 24 hr 05/01/21 15:50: Crossmatch (AHG) See Detail 05/02/21 12:10: Urine Color Yellow, Urine Appearance Clear, Urine pH 5.5, Ur Specific [place] 1.020, Urine Protein Trace, Urine Glucose (UA) Negative, Urine Ketones Negative, Urine Blood Negative, Urine Nitrate Negative, Urine Bilirubin Negative, Urine Urobilinogen 0.2, Ur Leukocyte Esterase Negative, Urine RBC None, Urine WBC 3-5, Ur Squamous Epith Cells None, Urine Bacteria None 05/02/21 15:02: WBC 15.7 H D, RBC 3.62 L, Hgb 9.6 L, Hct 30.7 L, MCV 84.7, MCH 26.4 L, MCHC 31.2 L, RDW 15.4, Plt Count 302, MPV 7.1 L, Neut % (Auto) 88.1 H, Lymph % (Auto) 6.1 L, [place] % (Auto) 5.5, Eos % (Auto) 0.2, Baso % (Auto) 0.2, Neut # (Auto) 13.8 H, Lymph # (Auto) 1.0, [place] # (Auto) 0.9, Eos # (Auto) 0.0, Baso # (Auto) 0.0, Total Counted 100, Neutrophils % (Manual) 89 H, Band Neutrophils % 4.0, Lymphocytes % (Manual) 4 L, Monocytes % (Manual) 3, Platelet Estimate Normal, Hypochromasia 3+ 05/02/21 15:02: Sodium 138, Potassium 4.5, Chloride 102, Carbon Dioxide 27, Anion Gap 13.5, BUN 30 H, Creatinine 1.00, Estimated Creat Clear 53, Estimated GFR 54 L, Est GFR ( Amer) 65, Glucose 96, Calcium 8.8, Total Bilirubin 0.7, AST 28 D, ALT 7 L D, Alkaline Phosphatase 76, Total Protein 6.4, Albumin 3.4 L, Globulin 3.0, Albumin/Globulin Ratio 1.1 05/03/21 07:52: WBC 13.8 H, RBC 3.70 L, Hgb 9.9 L, Hct 30.6 L, MCV 82.7, MCH 26.7 L, MCHC 32.3, RDW 16.3, Plt Count 282, MPV 7.4, Neut % (Auto) 82.0 H, Lymph % (Auto) 11.5, [place] % (Auto) 5.2, Eos % (Auto) 1.0, Baso % (Auto) 0.3, Neut # (Auto) 11.3 H, Lymph # (Auto) 1.6, [place] # (Auto) 0.7, Eos # (Auto) 0.1, Baso # (Auto) 0.0 05/03/21 07:52: Sodium 134 L, Potassium 4.7, Chloride 101, Carbon Dioxide 27, Anion Gap 10.7, BUN 24 H, Creatinine 0.80, Estimated Creat Clear 53, Estimated GFR 70, Est GFR ( Amer) 85 D, Glucose 108 H, Calcium 8.9 I & O for Last 24 hours: Intake & Output 05/01/21 05/02/21 05/03/21 05/04/21 11:59 11:59 11:59 11:59 Intake Total 607.87 / 607.87 660 / 660 Output Total 300 / 300 2250 / 2250 Balance 307.87 / 307.87 -1590 / -1590 Weight 153 lb 9 oz 152 lb 2 oz Microbiology Reports for the Last 24 Hours: Microbiology 05/01/21 09:35 Sputum - Expectorated Sputum Gram Stain - Final 05/01/21 09:35 Sputum - Expectorated Sputum Sputum Culture - Preliminary - Constitutional no acute distress - *Routine HEENT Exam Head: Present: normocephalic Eye: Present: PERRL ENT: Present: mucous membranes moist - *Routine Neck Exam Present: supple. Absent: lymphadenopathy - *Routine Respiratory Exam Present: decreased breath sounds, rhonchi - *Routine Cardiovascular Exam Present: RRR - *Routine Abdominal Exam Present: soft, normoactive bowel sounds. Absent: tenderness - *Routine Extremities Exam Present: normal capillary refill. Absent: cyanosis, clubbing, edema - *Routine Skin Exam Present: warm. Absent: rash - *Routine Neurological Exam Present: alert, oriented X3 - Routine Psychiatric Exam Present: normal affect Assessment and Plan (1) Anemia Status: Acute Qualifiers: Anemia type: unspecified type Qualified Code(s): D64.9 - Anemia, unspecified Category: Medical Code(s): D64.9 - Anemia, unspecified (2) Pneumonia Status: Acute Qualifiers: Pneumonia type: due to unspecified organism Laterality: left Lung location: lower lobe of lung Qualified Code(s): J18.9 - Pneumonia, unspecified organism Category: Medical Code(s): J18.9 - Pneumonia, unspecified organism (3) COPD (chronic obstructive pulmonary disease) Status: Acute Qualifiers: COPD type: uns
--- NOTE | 2021-05-03 13:45 | PC.NURSE ---
Notified Irma Constantino APRN (through Niall Stone RN) that patient has lost IV access. Multiple attempts by multiple RN;s have failed. VO for Picc to be placed received.
--- NOTE | 2021-05-03 14:35 | HMH.PHACONS ---
- Pharmacy Consult Date: 05/03/21 Time: 14:35 Referring provider: DR. JHA Reason for Consult:: VANCOMYCIN DOSING Allergies and ADEs:: Allergies Allergy/AdvReac Type Severity Reaction Status Date / Time No Known Allergies Allergy Verified 05/01/21 13:15 Home Medications:: Home Medications Medication Instructions Recorded Confirmed Type Clopidogrel Bisulfate [Plavix] 75 mg PO DAILY 05/01/21 05/02/21 History Trazodone HCl 100 mg PO HS 05/01/21 05/02/21 History carvediloL [Carvedilol 12.5mg Tab] 12.5 mg PO BID 05/01/21 05/02/21 History Acetaminophen with Codeine 1 tab PO TIDP PRN 05/02/21 05/02/21 History [Acetaminophen w/Codeine #3 Tablet] guaiFENesin [Guaifenesin ER] 600 mg PO BIDP PRN 05/02/21 05/02/21 History Height: 1.73 m Weight: 69.003 kg Laboratory Results:: Laboratory Results - last 24 hr 05/01/21 15:50: Crossmatch (AHG) See Detail 05/02/21 12:10: Urine Color Yellow, Urine Appearance Clear, Urine pH 5.5, Ur Specific [place] 1.020, Urine Protein Trace, Urine Glucose (UA) Negative, Urine Ketones Negative, Urine Blood Negative, Urine Nitrate Negative, Urine Bilirubin Negative, Urine Urobilinogen 0.2, Ur Leukocyte Esterase Negative, Urine RBC None, Urine WBC 3-5, Ur Squamous Epith Cells None, Urine Bacteria None 05/02/21 15:02: WBC 15.7 H D, RBC 3.62 L, Hgb 9.6 L, Hct 30.7 L, MCV 84.7, MCH 26.4 L, MCHC 31.2 L, RDW 15.4, Plt Count 302, MPV 7.1 L, Neut % (Auto) 88.1 H, Lymph % (Auto) 6.1 L, [place] % (Auto) 5.5, Eos % (Auto) 0.2, Baso % (Auto) 0.2, Neut # (Auto) 13.8 H, Lymph # (Auto) 1.0, [place] # (Auto) 0.9, Eos # (Auto) 0.0, Baso # (Auto) 0.0, Total Counted 100, Neutrophils % (Manual) 89 H, Band Neutrophils % 4.0, Lymphocytes % (Manual) 4 L, Monocytes % (Manual) 3, Platelet Estimate Normal, Hypochromasia 3+ 05/02/21 15:02: Sodium 138, Potassium 4.5, Chloride 102, Carbon Dioxide 27, Anion Gap 13.5, BUN 30 H, Creatinine 1.00, Estimated Creat Clear 53, Estimated GFR 54 L, Est GFR ( Amer) 65, Glucose 96, Calcium 8.8, Total Bilirubin 0.7, AST 28 D, ALT 7 L D, Alkaline Phosphatase 76, Total Protein 6.4, Albumin 3.4 L, Globulin 3.0, Albumin/Globulin Ratio 1.1 05/03/21 07:52: WBC 13.8 H, RBC 3.70 L, Hgb 9.9 L, Hct 30.6 L, MCV 82.7, MCH 26.7 L, MCHC 32.3, RDW 16.3, Plt Count 282, MPV 7.4, Neut % (Auto) 82.0 H, Lymph % (Auto) 11.5, [place] % (Auto) 5.2, Eos % (Auto) 1.0, Baso % (Auto) 0.3, Neut # (Auto) 11.3 H, Lymph # (Auto) 1.6, [place] # (Auto) 0.7, Eos # (Auto) 0.1, Baso # (Auto) 0.0 05/03/21 07:52: Sodium 134 L, Potassium 4.7, Chloride 101, Carbon Dioxide 27, Anion Gap 10.7, BUN 24 H, Creatinine 0.80, Estimated Creat Clear 53, Estimated GFR 70, Est GFR ( Amer) 85 D, Glucose 108 H, Calcium 8.9 Medical History: Reports:: Congestive Heart Failure, Chronic Obstructive Pulmonary Disease (COPD), Coronary Artery Disease, Deep Vein Thrombosis, Hiatal Hernia, Home Oxygen, Hyperlipidemia, Hypertension, Lung Disease Denies:: Cancer, Diabetes Mellitus Type 1, Diabetes Mellitus Type 2, MRSA Assessment and Plan (1) Anemia Status: Acute Qualifiers: Anemia type: unspecified type Qualified Code(s): D64.9 - Anemia, unspecified Category: Medical Code(s): D64.9 - Anemia, unspecified (2) Pneumonia Status: Acute Qualifiers: Pneumonia type: due to unspecified organism Laterality: left Lung location: lower lobe of lung Qualified Code(s): J18.9 - Pneumonia, unspecified organism Category: Medical Code(s): J18.9 - Pneumonia, unspecified organism (3) COPD (chronic obstructive pulmonary disease) Status: Acute Qualifiers: COPD type: unspecified COPD Qualified Code(s): J44.9 - Chronic obstructive pulmonary disease, unspecified Category: Medical Code(s): J44.9 - Chronic obstructive pulmonary disease, unspecified (4) CAD (coronary artery disease) Status: Acute Qualifiers: Coronary Disease-Associated Artery/Lesion type: unspecified vessel or lesion type [place] vs. transplanted heart: nativ
--- NOTE | 2021-05-03 14:47 | PC.NURSE ---
Addendum entered by Kayli Silveira RN 05/03/21 15:36: Pt has ran a low grade temp off and on this shift. Dr Harris notified this AM of temp, NNO. Original Note: Pt is alert and oriented x4. Lungs have expiratory wheezes, R>L. She remains on 3L NC w/O2 sats in 90's. She has been restless most of the shift. She has been up to the chair, in the bed, and in a wheelchair, all multiple times t/o the shift. She has complained of not feeling good, not being able to breath, and of pain in multiple places. I've tried many things to make her comfortable including: pain meds, repositioning, warm blankets, and distraction. Unfortunately I have been unable to relieve her discomfort. She is currently waiting to have a PICC placed.
--- NOTE | 2021-05-03 23:01 | PC.NURSE ---
Pt transferred to room 210, gave report to KAYLIE Herndon.
[2021-05-04] VITALS (12 sets, daily range): BP systolic 127–189; BP diastolic 60–83; PULSE 60–89; RESP 17–20; TEMP 36.6–37.2; O2SAT 95–99; BMI 23.3
--- NOTE | 2021-05-04 03:49 | PC.NURSE ---
Pt is A/O x4. Pt is on 3L NC with stats >90. No acute changes this shift. Pt complained of pain x1 this shift, admin pain meds x1 with relief. PICC is patent in the left upper arm. Quevedo is draining slightly red tinged urine. Pt has continued to be in airborne precautions pending quantiferon test. VSS, call light within reach, no concerns at this time.
[2021-05-04 06:28] LABS: Basophils % 0.3 % (0.1-2.0); Eosinophils # 0.2 K/mm3 (0.0-0.4); Eosinophils % 1.7 % (0.1-12.0); Hematocrit 27.1 % (37.0-47.0); Lymphocytes # 0.9 K/mm3 (0.7-4.5); Lymphocytes % 7.8 % (10-50); Mean Corpuscular HGB Conc 31.9 g/dL (31.8-35.4); Mean Corpuscular Hemoglobin 26.2 pg (27.0-31.2); Mean Corpuscular Volume 82.1 fl (81-99); Mean Platelet Volume 7.3 fl (7.4-10.4); Monocytes # 0.7 K/mm3 (0.1-1.0); Monocytes % 6.5 % (1.7-9.3); Neutrophils # 9.5 K/mm3 (1.8-7.8); Neutrophils % 83.7 % (37.0-80.0); Platelet Count 293 K/mm3 (142-424); Red Cell Distribution Width 16.3 % (11.5-17.5); White Blood Count 11.4 K/mm3 (4.8-10.8)
[2021-05-04 06:32] LABS: Hemoglobin 8.7 g/dL (12.2-16.2)
[2021-05-04 06:36] LABS: Anion Gap 8.6 mEq/L (5-15); Blood Urea Nitrogen 15 mg/dl (7-17); Calcium 8.4 mg/dl (8.4-10.2); Carbon Dioxide 28 mmol/L (22.0-30.0); Chloride 102 mmol/L (98-107); Creatinine Clearance Estimated 53 mL/min (50-200); Estimated Glomerular Filt Rate 70 ml/min (>60); GFR (African American) 85 ML/MIN (>60); Glucose 106 mg/dl (74-100); Potassium 3.6 mmoL/L (3.5-5.1); Sodium 135 mmol/L (136-145)
[2021-05-04 09:28] LABS: Occult Blood,Stool Negative (Negative)
--- NOTE | 2021-05-04 10:33 | HMH.ACPN2 ---
Internal Medicine - PN: Subj *Date: 05/04/21 *Time: 09:42 Interval history: 75-year-old female patient lying in bed resting quietly with eyes closed, awakens easily to verbal stimuli. She denies any chest pain or shortness of breath. She states eye feels so much better and ready to go home, medical condition explained to patient and that she will be inpatient for several more days, she is agreeable to this. Oxygenation on 3 L per nasal cannula is 98%. Sputum cultures are showing gram-positive cocci, blood cultures are no growth at 48 hours. Chest x-ray yesterday revealed: IMPRESSION: PICC line in good position. Increasing consolidation in the right lower lobe consistent with worsening pneumonia with an area of necrosis or abscess development Dictated by: Candido Dan MD Exam Vital signs and Labs for Last 24 Hours: Temp Pulse Resp BP Pulse Ox 98.6 F 68 18 159/70 H 99 05/04/21 16:00 05/04/21 16:00 05/04/21 16:00 05/04/21 16:00 05/04/21 16:00 Laboratory Results - last 24 hr 05/01/21 15:50: Crossmatch (AHG) See Detail 05/04/21 05:45: WBC 11.4 H, RBC 3.30 L, Hgb 8.7 L D, Hct 27.1 L, MCV 82.1, MCH 26.2 L, MCHC 31.9, RDW 16.3, Plt Count 293, MPV 7.3 L, Neut % (Auto) 83.7 H, Lymph % (Auto) 7.8 L, [place] % (Auto) 6.5, Eos % (Auto) 1.7, Baso % (Auto) 0.3, Neut # (Auto) 9.5 H, Lymph # (Auto) 0.9, [place] # (Auto) 0.7, Eos # (Auto) 0.2, Baso # (Auto) 0.0 05/04/21 05:45: Sodium 135 L, Potassium 3.6 D, Chloride 102, Carbon Dioxide 28, Anion Gap 8.6, BUN 15 D, Creatinine 0.80, Estimated Creat Clear 53, Estimated GFR 70, Est GFR ( Amer) 85, Glucose 106 H, Calcium 8.4 05/04/21 08:00: Stool Occult Blood Negative I & O for Last 24 hours: Intake & Output 05/01/21 05/02/21 05/03/21 05/04/21 23:59 23:59 23:59 23:59 Intake Total 240 / 240 787.87 / 787.87 480 / 600 960 / 960 Output Total 2450 / 2550 1525 / 1525 1250 / 1250 Balance 240 / -60 -1662.13 / -1762.13 -1045 / -925 -290 / -290 Weight 151 lb 4 oz 153 lb 9 oz 152 lb 1.903 oz 153 lb 9.6 oz Microbiology Reports for the Last 24 Hours: Microbiology 05/01/21 09:35 Sputum - Expectorated Sputum Gram Stain - Final 05/01/21 09:35 Sputum - Expectorated Sputum Sputum Culture - Preliminary Gram Positive Cocci - Constitutional no acute distress - *Routine HEENT Exam Head: Present: normocephalic Eye: Present: EOMI ENT: Present: mucous membranes moist - *Routine Neck Exam Present: trachea midline. Absent: tracheal deviation - *Routine Respiratory Exam Present: rales. Absent: accessory muscle use - *Routine Cardiovascular Exam Present: RRR - *Routine Abdominal Exam Present: soft, normoactive bowel sounds. Absent: tenderness, firm - *Routine Extremities Exam Present: edema, full ROM, pulses intact. Absent: cyanosis, calf tenderness - *Routine Skin Exam Present: intact, dry, warm. Absent: cyanosis, erythema - *Routine Neurological Exam Present: alert, oriented X3. Absent: sensory deficit, pronator drift - Routine Psychiatric Exam Present: normal affect, normal thought process. Absent: auditory hallucinations, visual hallucinations Assessment and Plan (1) Anemia Status: Acute Qualifiers: Anemia type: unspecified type Qualified Code(s): D64.9 - Anemia, unspecified Category: Medical Code(s): D64.9 - Anemia, unspecified (2) Pneumonia Status: Acute Qualifiers: Pneumonia type: due to unspecified organism Laterality: left Lung location: lower lobe of lung Qualified Code(s): J18.9 - Pneumonia, unspecified organism Category: Medical Code(s): J18.9 - Pneumonia, unspecified organism (3) COPD (chronic obstructive pulmonary disease) Status: Acute Qualifiers: COPD type: unspecified COPD Qualified Code(s): J44.9 - Chronic obstructive pulmonary disease, unspecified Category: Medical Code(s): J44.9 - Chronic obstructive pulmonary disease, unspecified (4) CAD (
--- NOTE | 2021-05-04 12:09 | HMH.ACPN ---
Internal Medicine - PN: Subj *Date: 05/04/21 *Time: 12:09 Exam Vital signs and Labs for Last 24 Hours: Temp Pulse Resp BP Pulse Ox 98.3 F 71 18 189/83 H 98 05/04/21 11:19 05/04/21 11:19 05/04/21 11:19 05/04/21 11:19 05/04/21 11:19 Laboratory Results - last 24 hr 05/04/21 05:45: WBC 11.4 H, RBC 3.30 L, Hgb 8.7 L D, Hct 27.1 L, MCV 82.1, MCH 26.2 L, MCHC 31.9, RDW 16.3, Plt Count 293, MPV 7.3 L, Neut % (Auto) 83.7 H, Lymph % (Auto) 7.8 L, [place] % (Auto) 6.5, Eos % (Auto) 1.7, Baso % (Auto) 0.3, Neut # (Auto) 9.5 H, Lymph # (Auto) 0.9, [place] # (Auto) 0.7, Eos # (Auto) 0.2, Baso # (Auto) 0.0 05/04/21 05:45: Sodium 135 L, Potassium 3.6 D, Chloride 102, Carbon Dioxide 28, Anion Gap 8.6, BUN 15 D, Creatinine 0.80, Estimated Creat Clear 53, Estimated GFR 70, Est GFR ( Amer) 85, Glucose 106 H, Calcium 8.4 05/04/21 08:00: Stool Occult Blood Negative I & O for Last 24 hours: Intake & Output 05/01/21 05/02/21 05/03/21 05/04/21 23:59 23:59 23:59 23:59 Intake Total 240 / 240 787.87 / 787.87 480 / 600 360 / 360 Output Total 2450 / 2550 1525 / 1525 600 / 600 Balance 240 / -60 -1662.13 / -1762.13 -1045 / -925 -240 / -240 Weight 68.606 kg 69.655 kg 69 kg 69.672 kg Microbiology Reports for the Last 24 Hours: Microbiology 05/01/21 09:35 Sputum - Expectorated Sputum Gram Stain - Final 05/01/21 09:35 Sputum - Expectorated Sputum Sputum Culture - Preliminary Gram Positive Cocci 05/01/21 14:45 Blood Blood Culture - Preliminary NO GROWTH AFTER 48 HOURS 05/01/21 14:45 Blood Blood Culture - Preliminary NO GROWTH AFTER 48 HOURS Assessment and Plan (1) Anemia Status: Acute Qualifiers: Anemia type: unspecified type Qualified Code(s): D64.9 - Anemia, unspecified Category: Medical Code(s): D64.9 - Anemia, unspecified (2) Pneumonia Status: Acute Qualifiers: Pneumonia type: due to unspecified organism Laterality: left Lung location: lower lobe of lung Qualified Code(s): J18.9 - Pneumonia, unspecified organism Category: Medical Code(s): J18.9 - Pneumonia, unspecified organism (3) COPD (chronic obstructive pulmonary disease) Status: Acute Qualifiers: COPD type: unspecified COPD Qualified Code(s): J44.9 - Chronic obstructive pulmonary disease, unspecified Category: Medical Code(s): J44.9 - Chronic obstructive pulmonary disease, unspecified (4) CAD (coronary artery disease) Status: Acute Qualifiers: Coronary Disease-Associated Artery/Lesion type: unspecified vessel or lesion type [place] vs. transplanted heart: [place] heart Associated angina: without angina Qualified Code(s): I25.10 - Atherosclerotic heart disease of [place] coronary artery without angina pectoris Category: Medical Code(s): I25.10 - Atherosclerotic heart disease of [place] coronary artery without angina pectoris (5) Stented coronary artery Status: Acute Category: Surgical Code(s): Z95.5 - Presence of coronary angioplasty implant and graft (6) Chest pain Status: Acute Qualifiers: Chest pain type: pleurodynia Qualified Code(s): R07.81 - Pleurodynia Category: Medical Code(s): R07.9 - Chest pain, unspecified The patient's infection will respond to the chosen ABx?: Yes Is the patient receiving the right drug, dose, and route?: Yes Could a more targeted ABx be ordered?: No
--- NOTE | 2021-05-04 13:10 | DIET.NUTRFU ---
PO intakes 50%, weight stable. Pt continues to struggle eating dt severe SOA. Diet liberalized from cardiac to no added salt to encourage intakes, no acute indication for fat/cholesterol restriction. Ensure BID and moderate soft modifications for ease of eating on diet order.
--- NOTE | 2021-05-04 17:02 | PC.NURSE ---
Received report on pt at this time.
[2021-05-04 20:40] LABS: Vancomycin,Peak 23.2 ug/ml (11-39)
[2021-05-05] VITALS (11 sets, daily range): BP systolic 138–178; BP diastolic 56–79; PULSE 64–84; RESP 18–19; TEMP 36.6–37; O2SAT 92–100; BMI 23.5
--- NOTE | 2021-05-05 05:43 | PC.NURSE ---
Patient had 1 episode of SOA, O2 sat 95%, respiratory called and gave treatment, administered morphine for pain in chest and patient rested with eyes closed. Has shown no s/s of acute distress, call light within reach, bed at lowest level for safety; will continue to monitor.
[2021-05-05 06:02] LABS: Basophils % 0.3 % (0.1-2.0); Eosinophils # 0.4 K/mm3 (0.0-0.4); Monocytes # 0.6 K/mm3 (0.1-1.0); Neutrophils # 7.3 K/mm3 (1.8-7.8)
[2021-05-05 06:04] LABS: Eosinophils % 4.6 % (0.1-12.0); Hematocrit 25.4 % (37.0-47.0); Lymphocytes % 10.6 % (10-50); Mean Corpuscular HGB Conc 31.7 g/dL (31.8-35.4); Mean Corpuscular Hemoglobin 26.4 pg (27.0-31.2); Mean Corpuscular Volume 83.4 fl (81-99); Mean Platelet Volume 8.3 fl (7.4-10.4); Monocytes % 6.2 % (1.7-9.3); Neutrophils % 78.3 % (37.0-80.0); Platelet Count 280 K/mm3 (142-424); Red Blood Count 3.04 M/mm3 (4.20-5.40); Red Cell Distribution Width 16.4 % (11.5-17.5); White Blood Count 9.3 K/mm3 (4.8-10.8)
[2021-05-05 06:17] LABS: Chloride 107 mmol/L (98-107); Potassium 3.3 mmoL/L (3.5-5.1); Sodium 139 mmol/L (136-145)
[2021-05-05 06:20] LABS: Anion Gap 6.3 mEq/L (5-15); Blood Urea Nitrogen 13 mg/dl (7-17); Calcium 8.5 mg/dl (8.4-10.2); Carbon Dioxide 29 mmol/L (22.0-30.0); Creatinine Clearance Estimated 54 mL/min (50-200); Estimated Glomerular Filt Rate 82 ml/min (>60); GFR (African American) 99 ML/MIN (>60); Glucose 93 mg/dl (74-100)
--- NOTE | 2021-05-05 11:00 | SW/DCPLANNER ---
Addendum entered by Norma Preston 05/08/21 11:02: Elmer with [facility] has stated that services will begin tomorrow for this patient. Addendum entered by Norma Preston 05/08/21 10:29: Patient is planned to discharge home today. Patient will discharge on PO antibiotics. Patient is interested in home health services for SN/PT/OT at time of discharge. Patient has used [facility] home [facility] in the past. I have faxed patient information/order to [facility] this AM. I will follow up once patient information/order is reviewed. Original Note: I spoke with this patient regarding the likelihood of needing 14 days of IV antibiotic (Vanc Q24) at time of discharge. I explained different ways to receive antibiotic: return as outpatient, home with home health or placement. Patient stated that she resides at home with her and he would be able to give IV antibiotics. Patient expressed that she did not feel well at this time. I will continue to follow up with this patient until medically stable for discharge. Discharge date is unknown at this time.
[2021-05-05 18:40] LABS: Vancomycin,Trough 7.9 ug/mL (5.0-10.0)
--- NOTE | 2021-05-05 18:54 | PC.NURSE ---
SHE IS AOX4, HAS REQUIRED 3LNC T/O SHIFT, HAS ASKED FOR BREATHING TREATMENTS T/O SHIFT. SHE HAS BEEN MEDICATED FOR PAIN WITH PRN MORPHINE WITH GOOD EFFECTIVENESS. SHE HAS TOLERATED PO INTAKE WELL. VSS T/O SHIFT. NO NEEDS VOICED AT THIS TIME.
--- NOTE | 2021-05-05 22:02 | HMH.DCSUM ---
General - General Admission date:: 05/01/21 Discharge date: 05/05/21 HPI HPI: Patient is a 75-year-old white female, well-known to me from the office, who was seen today for ER follow-up. She presented to the emergency room at [facility] yesterday for intractable coughing and right-sided chest pain. Her work-up included a chest x-ray which showed bibasilar infiltrative processes, a CTA of her chest which was negative for pulmonary emboli, and venipuncture lab work showed a hemoglobin of 7.1. She was sent out with a prescription for Tussionex and Levaquin. She declined admission there in favor of follow-up with us. Patient has a history of stented coronary disease, and is on Plavix. Patient has a history of multiple pulmonary emboli, and had been on Xarelto in the past. Once resolution of the emboli was demonstrated on CTA the Xarelto was stopped. There was a point when Xarelto and Plavix overlapped, and during that time she required transfusion of several units of packed red cells. Patient relays that within the past few years she has had upper and lower endoscopy by Dr. Barclay in [place]. She relays that these were unremarkable. He did have her slated for a gastric emptying time, which she did not complete. She has had no evidence of hematemesis or dark stool. Her principal complaint is intractable coughing with right sided chest pain. She is admitted for further evaluation and treatment. Patient has a longstanding history of COPD, is oxygen dependent at home, and has a propensity for pneumonia. Hospital Course Hospital Course: Laboratory Tests 05/01/21 05/01/21 05/01/21 05:44 14:43 14:43 WBC RBC Hgb Hct MCV MCH MCHC RDW Plt Count MPV Neut % (Auto) Lymph % (Auto) [place] % (Auto) Eos % (Auto) Baso % (Auto) Neut # (Auto) Lymph # (Auto) [place] # (Auto) Eos # (Auto) Baso # (Auto) Total Counted Neutrophils % (Manual) Band Neutrophils % Lymphocytes % (Manual) Monocytes % (Manual) Platelet Estimate Hypochromasia Microcytosis D-Dimer Specimen Source Left radial O2 % 3 lpm nc ABG pH 7.41 ABG pCO2 39.1 ABG pO2 88.8 ABG HCO3 24.0 ABG Total CO2 25.2 ABG O2 Saturation 97 ABG Base Excess -0.7 [place] Test Acceptable ABG Lactate 1.1 Sodium Potassium Chloride Carbon Dioxide Anion Gap BUN Creatinine Estimated Creat Clear Estimated GFR Est GFR ( Amer) Glucose Calcium Iron TIBC Iron Saturation Total Bilirubin AST ALT Alkaline Phosphatase Troponin I Total Protein Albumin Globulin Albumin/Globulin Ratio Procalcitonin Urine Color Yellow Urine Appearance Clear Urine pH 5.0 Ur Specific [place] 1.025 Urine Protein Negative Urine Glucose (UA) Negative Urine Ketones Negative Urine Blood Negative Urine Nitrate Negative Urine Bilirubin Negative Urine Urobilinogen 0.2 Ur Leukocyte Esterase Trace Urine RBC None Urine WBC None Ur Squamous Epith Cells Occasional Urine Bacteria None Stool Occult Blood Vancomycin Peak Vancomycin Trough SARS-CoV-2 (PCR) Influenza A Untype (PCR) Influenza Type B (PCR) Blood Type Antibody Screen Antibody Identification Crossmatch (AHG) 05/01/21 05/01/21 05/01/21 14:45 14:45 14:45 WBC 27.2 H* RBC 2.98 L Hgb 7.3 L* Hct 24.0 L MCV 80.5 L MCH 24.5 L MCHC 30.4 L RDW 15.5 Plt Count 370 MPV 8.3 Neut % (Auto) 92.9 H Lymph % (Auto) 3.6 L [place] % (Auto) 3.4 Eos % (Auto) 0.0 L Baso % (Auto) 0.0 L Neut # (Auto) 25.3 H Lymph # (Auto) 1.0 [place] # (Auto) 0.9 Eos # (Auto) 0.0 Baso # (Auto) 0.0 Total Counted 100 Neutrophils % (Manual) 89 H Band Neutrophils % 2.0 Lymphocytes % (Manual) 6 L Monocytes % (M
[2021-05-06] VITALS (12 sets, daily range): BP systolic 130–189; BP diastolic 47–90; PULSE 60–90; RESP 14–19; TEMP 36.4–36.8; O2SAT 90–97; BMI 24.0
--- NOTE | 2021-05-06 04:55 | PC.NURSE ---
Received call from Wilma Maynard, no beds available at this time.
[2021-05-06 06:40] LABS: Basophils % 0.3 % (0.1-2.0); Eosinophils % 0.1 % (0.1-12.0); Hematocrit 26.4 % (37.0-47.0); Hemoglobin 8.2 g/dL (12.2-16.2); Lymphocytes # 0.5 K/mm3 (0.7-4.5); Lymphocytes % 5.8 % (10-50); Mean Corpuscular Hemoglobin 26.1 pg (27.0-31.2); Mean Corpuscular Volume 84.4 fl (81-99); Mean Platelet Volume 6.8 fl (7.4-10.4); Monocytes # 0.4 K/mm3 (0.1-1.0); Monocytes % 4.2 % (1.7-9.3); Neutrophils # 7.6 K/mm3 (1.8-7.8); Neutrophils % 89.6 % (37.0-80.0); Platelet Count 279 K/mm3 (142-424); Red Blood Count 3.12 M/mm3 (4.20-5.40); Red Cell Distribution Width 16.3 % (11.5-17.5); White Blood Count 8.4 K/mm3 (4.8-10.8)
[2021-05-06 06:42] LABS: MANUAL DIFFERENTIAL MANUAL DIFFERENTIAL (MANUAL DIFF)
[2021-05-06 06:55] LABS: Anion Gap 8.8 mEq/L (5-15); Blood Urea Nitrogen 14 mg/dl (7-17); Calcium 8.7 mg/dl (8.4-10.2); Carbon Dioxide 28 mmol/L (22.0-30.0); Chloride 107 mmol/L (98-107); Creatinine Clearance Estimated 55 mL/min (50-200); Estimated Glomerular Filt Rate 82 ml/min (>60); GFR (African American) 99 ML/MIN (>60); Glucose 143 mg/dl (74-100); Potassium 3.8 mmoL/L (3.5-5.1); Sodium 140 mmol/L (136-145)
[2021-05-06 07:42] LABS: Hypochromasia 2+; Lymphocytes % 2 % (10-50); Microcytosis 1+; Monocytes % 1 % (2-9); Neutrophils % 97 % (42-76); Platelet Estimate Normal; Total Cells Counted 100
[2021-05-06 07:43] LABS: Anisocytosis 1+
--- NOTE | 2021-05-06 09:09 | HMH.ACPN2 ---
Internal Medicine - PN: Subj *Date: 05/06/21 *Time: 09:09 Interval history: looks better this am- pt with no hemoptysis- hgb 8.2 Exam Vital signs and Labs for Last 24 Hours: Temp Pulse Resp BP Pulse Ox 97.8 F 78 18 157/79 H 95 05/06/21 07:34 05/06/21 07:34 05/06/21 07:34 05/06/21 07:34 05/06/21 07:34 Laboratory Results - last 24 hr 05/05/21 14:20: Blood Type O Positive, Antibody Screen Positive, Crossmatch (AHG) See Detail 05/05/21 16:45: Vancomycin Trough 7.9 05/06/21 06:00: WBC 8.4, RBC 3.12 L, Hgb 8.2 L, Hct 26.4 L, MCV 84.4, MCH 26.1 L, MCHC 31.0 L, RDW 16.3, Plt Count 279, MPV 6.8 L, Neut % (Auto) 89.6 H, Lymph % (Auto) 5.8 L, [place] % (Auto) 4.2, Eos % (Auto) 0.1, Baso % (Auto) 0.3, Neut # (Auto) 7.6, Lymph # (Auto) 0.5 L, [place] # (Auto) 0.4, Eos # (Auto) 0.0, Baso # (Auto) 0.0, Total Counted 100, Neutrophils % (Manual) 97 H, Lymphocytes % (Manual) 2 L, Monocytes % (Manual) 1 L, Platelet Estimate Normal, Hypochromasia 2+, Anisocytosis 1+, Microcytosis 1+ 05/06/21 06:00: Sodium 140, Potassium 3.8, Chloride 107, Carbon Dioxide 28, Anion Gap 8.8, BUN 14, Creatinine 0.70, Estimated Creat Clear 55, Estimated GFR 82, Est GFR ( Amer) 99, Glucose 143 H, Calcium 8.7 I & O for Last 24 hours: Intake & Output 05/03/21 05/04/21 05/05/21 05/06/21 11:59 11:59 11:59 11:59 Intake Total 660 / 660 600 / 600 940 / 940 800 / 800 Output Total 2250 / 2250 2024 2024 900 / 900 745 / 745 Balance -1590 / -1590 -1425 / -1425 40 / 40 55 / 55 Weight 152 lb 2 oz 153 lb 9.6 oz 155 lb 6 oz 158 lb 8 oz Microbiology Reports for the Last 24 Hours: Microbiology 05/01/21 09:35 Sputum - Expectorated Sputum Gram Stain - Final 05/01/21 09:35 Sputum - Expectorated Sputum Sputum Culture - Final Staphylococcus aureus - Constitutional no acute distress, thin - *Routine HEENT Exam Head: Present: normocephalic Eye: Present: EOMI, PERRL ENT: Present: mucous membranes dry - *Routine Neck Exam Present: supple. Absent: JVD - *Routine Respiratory Exam Present: decreased breath sounds - *Routine Cardiovascular Exam Present: RRR, murmur - *Routine Abdominal Exam Present: soft - *Routine Extremities Exam Absent: edema - *Routine Skin Exam Present: intact - *Routine Neurological Exam Present: alert, CN II-XII intact - Routine Psychiatric Exam Present: normal affect Assessment and Plan (1) Anemia Status: Acute Qualifiers: Anemia type: unspecified type Qualified Code(s): D64.9 - Anemia, unspecified Category: Medical Code(s): D64.9 - Anemia, unspecified (2) Pneumonia Status: Acute Qualifiers: Pneumonia type: due to unspecified organism Laterality: left Lung location: lower lobe of lung Qualified Code(s): J18.9 - Pneumonia, unspecified organism Category: Medical Code(s): J18.9 - Pneumonia, unspecified organism (3) COPD (chronic obstructive pulmonary disease) Status: Acute Qualifiers: COPD type: unspecified COPD Qualified Code(s): J44.9 - Chronic obstructive pulmonary disease, unspecified Category: Medical Code(s): J44.9 - Chronic obstructive pulmonary disease, unspecified (4) CAD (coronary artery disease) Status: Acute Qualifiers: Coronary Disease-Associated Artery/Lesion type: unspecified vessel or lesion type [place] vs. transplanted heart: [place] heart Associated angina: without angina Qualified Code(s): I25.10 - Atherosclerotic heart disease of [place] coronary artery without angina pectoris Category: Medical Code(s): I25.10 - Atherosclerotic heart disease of [place] coronary artery without angina pectoris (5) Stented coronary artery Status: Acute Category: Surgical Code(s): Z95.5 - Presence of coronary angioplasty implant and graft (6) Chest pain Status: Acute Qualifiers: Chest pain type: pleurodynia Qualified Code(s): R07.81 - Pleurodynia Category: Medical Code(s): R07
--- NOTE | 2021-05-06 11:25 | HMH.PHACONS ---
- Pharmacy Consult Date: 05/06/21 Time: 11:25 Referring provider: DR. JHA Reason for Consult:: VANCOMYCIN PEAK AND TROUGH LEVELS Allergies and ADEs:: Allergies Allergy/AdvReac Type Severity Reaction Status Date / Time No Known Allergies Allergy Verified 05/01/21 13:15 Home Medications:: Home Medications Medication Instructions Recorded Confirmed Type Clopidogrel Bisulfate [Plavix] 75 mg PO DAILY 05/01/21 05/02/21 History Trazodone HCl 100 mg PO HS 05/01/21 05/02/21 History carvediloL [Carvedilol 12.5mg Tab] 12.5 mg PO BID 05/01/21 05/02/21 History Acetaminophen with Codeine 1 tab PO TIDP PRN 05/02/21 05/02/21 History [Acetaminophen w/Codeine #3 Tablet] guaiFENesin [Guaifenesin ER] 600 mg PO BIDP PRN 05/02/21 05/02/21 History Height: 1.73 m Weight: 71.894 kg Laboratory Results:: Laboratory Results - last 24 hr 05/05/21 14:20: Blood Type O Positive, Antibody Screen Positive, Crossmatch (AHG) See Detail 05/05/21 16:45: Vancomycin Trough 7.9 05/06/21 06:00: WBC 8.4, RBC 3.12 L, Hgb 8.2 L, Hct 26.4 L, MCV 84.4, MCH 26.1 L, MCHC 31.0 L, RDW 16.3, Plt Count 279, MPV 6.8 L, Neut % (Auto) 89.6 H, Lymph % (Auto) 5.8 L, [place] % (Auto) 4.2, Eos % (Auto) 0.1, Baso % (Auto) 0.3, Neut # (Auto) 7.6, Lymph # (Auto) 0.5 L, [place] # (Auto) 0.4, Eos # (Auto) 0.0, Baso # (Auto) 0.0, Total Counted 100, Neutrophils % (Manual) 97 H, Lymphocytes % (Manual) 2 L, Monocytes % (Manual) 1 L, Platelet Estimate Normal, Hypochromasia 2+, Anisocytosis 1+, Microcytosis 1+ 05/06/21 06:00: Sodium 140, Potassium 3.8, Chloride 107, Carbon Dioxide 28, Anion Gap 8.8, BUN 14, Creatinine 0.70, Estimated Creat Clear 55, Estimated GFR 82, Est GFR ( Amer) 99, Glucose 143 H, Calcium 8.7 Medical History: Reports:: Congestive Heart Failure, Chronic Obstructive Pulmonary Disease (COPD), Coronary Artery Disease, Deep Vein Thrombosis, Hiatal Hernia, Home Oxygen, Hyperlipidemia, Hypertension, Lung Disease Denies:: Cancer, Diabetes Mellitus Type 1, Diabetes Mellitus Type 2, MRSA Assessment and Plan (1) Anemia Status: Acute Qualifiers: Anemia type: unspecified type Qualified Code(s): D64.9 - Anemia, unspecified Category: Medical Code(s): D64.9 - Anemia, unspecified (2) Pneumonia Status: Acute Qualifiers: Pneumonia type: due to unspecified organism Laterality: left Lung location: lower lobe of lung Qualified Code(s): J18.9 - Pneumonia, unspecified organism Category: Medical Code(s): J18.9 - Pneumonia, unspecified organism (3) COPD (chronic obstructive pulmonary disease) Status: Acute Qualifiers: COPD type: unspecified COPD Qualified Code(s): J44.9 - Chronic obstructive pulmonary disease, unspecified Category: Medical Code(s): J44.9 - Chronic obstructive pulmonary disease, unspecified (4) CAD (coronary artery disease) Status: Acute Qualifiers: Coronary Disease-Associated Artery/Lesion type: unspecified vessel or lesion type [place] vs. transplanted heart: [place] heart Associated angina: without angina Qualified Code(s): I25.10 - Atherosclerotic heart disease of [place] coronary artery without angina pectoris Category: Medical Code(s): I25.10 - Atherosclerotic heart disease of [place] coronary artery without angina pectoris (5) Stented coronary artery Status: Acute Category: Surgical Code(s): Z95.5 - Presence of coronary angioplasty implant and graft (6) Chest pain Status: Acute Qualifiers: Chest pain type: pleurodynia Qualified Code(s): R07.81 - Pleurodynia Category: Medical Code(s): R07.9 - Chest pain, unspecified (7) AAA (abdominal aortic aneurysm) without rupture Status: Acute Category: Medical Code(s): I71.4 - Abdominal aortic aneurysm, without rupture (8) Cavitating mass of lung Status: Acute Category: Medical Code(s): J98.4 - Other disorders of lung - Assessment and plan all Dx Assessment and Plan for all problems:: BASED ON PATIENT FAC
--- NOTE | 2021-05-06 11:28 | PC.NURSE ---
[facility] called with update on bed status. Still no available beds.
--- NOTE | 2021-05-06 12:46 | HMH.ACPN ---
Internal Medicine - PN: Subj *Date: 05/06/21 *Time: 12:46 Exam Vital signs and Labs for Last 24 Hours: Temp Pulse Resp BP Pulse Ox 97.6 F 68 17 186/76 H 96 05/06/21 11:17 05/06/21 11:17 05/06/21 11:05/06/21 11:05/06/21 11:17 Laboratory Results - last 24 hr 05/05/21 14:20: Blood Type O Positive, Antibody Screen Positive, Crossmatch (AHG) See Detail 05/05/21 16:45: Vancomycin Trough 7.9 05/06/21 06:00: WBC 8.4, RBC 3.12 L, Hgb 8.2 L, Hct 26.4 L, MCV 84.4, MCH 26.1 L, MCHC 31.0 L, RDW 16.3, Plt Count 279, MPV 6.8 L, Neut % (Auto) 89.6 H, Lymph % (Auto) 5.8 L, [place] % (Auto) 4.2, Eos % (Auto) 0.1, Baso % (Auto) 0.3, Neut # (Auto) 7.6, Lymph # (Auto) 0.5 L, [place] # (Auto) 0.4, Eos # (Auto) 0.0, Baso # (Auto) 0.0, Total Counted 100, Neutrophils % (Manual) 97 H, Lymphocytes % (Manual) 2 L, Monocytes % (Manual) 1 L, Platelet Estimate Normal, Hypochromasia 2+, Anisocytosis 1+, Microcytosis 1+ 05/06/21 06:00: Sodium 140, Potassium 3.8, Chloride 107, Carbon Dioxide 28, Anion Gap 8.8, BUN 14, Creatinine 0.70, Estimated Creat Clear 55, Estimated GFR 82, Est GFR ( Amer) 99, Glucose 143 H, Calcium 8.7 I & O for Last 24 hours: Intake & Output 05/03/21 05/04/21 05/05/21 05/06/21 23:59 23:59 23:59 23:59 Intake Total 480 / 600 960 / 960 580 / 580 560 / 560 Output Total 1525 / 1525 1250 / 1250 725 / 845 270 / 270 Balance -1045 / -925 -290 / -290 -145 / -265 290 / 290 Weight 69 kg 69.672 kg 70.477 kg 71.894 kg Assessment and Plan (1) Anemia Status: Acute Qualifiers: Anemia type: unspecified type Qualified Code(s): D64.9 - Anemia, unspecified Category: Medical Code(s): D64.9 - Anemia, unspecified (2) Pneumonia Status: Acute Qualifiers: Pneumonia type: due to unspecified organism Laterality: left Lung location: lower lobe of lung Qualified Code(s): J18.9 - Pneumonia, unspecified organism Category: Medical Code(s): J18.9 - Pneumonia, unspecified organism (3) COPD (chronic obstructive pulmonary disease) Status: Acute Qualifiers: COPD type: unspecified COPD Qualified Code(s): J44.9 - Chronic obstructive pulmonary disease, unspecified Category: Medical Code(s): J44.9 - Chronic obstructive pulmonary disease, unspecified (4) CAD (coronary artery disease) Status: Acute Qualifiers: Coronary Disease-Associated Artery/Lesion type: unspecified vessel or lesion type [place] vs. transplanted heart: [place] heart Associated angina: without angina Qualified Code(s): I25.10 - Atherosclerotic heart disease of [place] coronary artery without angina pectoris Category: Medical Code(s): I25.10 - Atherosclerotic heart disease of [place] coronary artery without angina pectoris (5) Stented coronary artery Status: Acute Category: Surgical Code(s): Z95.5 - Presence of coronary angioplasty implant and graft (6) Chest pain Status: Acute Qualifiers: Chest pain type: pleurodynia Qualified Code(s): R07.81 - Pleurodynia Category: Medical Code(s): R07.9 - Chest pain, unspecified (7) AAA (abdominal aortic aneurysm) without rupture Status: Acute Category: Medical Code(s): I71.4 - Abdominal aortic aneurysm, without rupture (8) Cavitating mass of lung Status: Acute Category: Medical Code(s): J98.4 - Other disorders of lung The patient's infection will respond to the chosen ABx?: Yes Is the patient receiving the right drug, dose, and route?: Yes Could a more targeted ABx be ordered?: No (MRSA IN SPUTUM. CAVITATION ON CHEST XRAY)
[2021-05-06 18:28] LABS: QuantiFERON-TB Gold Plus Negative (Negative)
--- NOTE | 2021-05-06 19:31 | PC.NURSE ---
SHE IS AOX4, ABLE TO MAKE NEEDS KNOWN TO STAFF, 3LNC FOR O2 SUPPORT, DENIES N/V/D. DENIES PAIN.
[2021-05-07] VITALS (14 sets, daily range): BP systolic 165–210; BP diastolic 79–100; PULSE 60–83; RESP 16–19; TEMP 36.5–36.8; O2SAT 92–98; BMI 23.7
--- NOTE | 2021-05-07 02:34 | PC.NURSE ---
Patient has had increased itching of skin. States she uses lotion and Benadryl at home. Received PRN order for Benadryl to help with itching.
--- NOTE | 2021-05-07 05:15 | PC.NURSE ---
Patients BP is elevated this AM and is asymptomatic 210/80 HR 77; provider notified. Patient has had c/o not being able to sleep, states she dozes off but doesn't seem to sleep any length of time - would like to know if she could get Trazadone 50mg as this is what she takes at home. Call light in reach, bed at lowest level for safety, shows no s/s of acute distress; will continue to monitor.
[2021-05-07 06:40] LABS: Basophils % 0.2 % (0.1-2.0); Hematocrit 27.1 % (37.0-47.0); Hemoglobin 8.5 g/dL (12.2-16.2); Lymphocytes # 0.7 K/mm3 (0.7-4.5); Lymphocytes % 8.2 % (10-50); Mean Corpuscular HGB Conc 31.2 g/dL (31.8-35.4); Mean Corpuscular Hemoglobin 26.1 pg (27.0-31.2); Mean Corpuscular Volume 83.6 fl (81-99); Mean Platelet Volume 7.4 fl (7.4-10.4); Monocytes # 0.3 K/mm3 (0.1-1.0); Monocytes % 4.4 % (1.7-9.3); Neutrophils # 6.8 K/mm3 (1.8-7.8); Neutrophils % 87.2 % (37.0-80.0); Platelet Count 348 K/mm3 (142-424); Red Blood Count 3.24 M/mm3 (4.20-5.40); Red Cell Distribution Width 16.5 % (11.5-17.5); White Blood Count 7.8 K/mm3 (4.8-10.8)
[2021-05-07 06:43] LABS: MANUAL DIFFERENTIAL MANUAL DIFFERENTIAL (MANUAL DIFF)
[2021-05-07 07:04] LABS: Anion Gap 9.7 mEq/L (5-15); Blood Urea Nitrogen 17 mg/dl (7-17); Calcium 8.9 mg/dl (8.4-10.2); Carbon Dioxide 28 mmol/L (22.0-30.0); Chloride 106 mmol/L (98-107); Creatinine Clearance Estimated 54 mL/min (50-200); Estimated Glomerular Filt Rate 82 ml/min (>60); GFR (African American) 99 ML/MIN (>60); Glucose 135 mg/dl (74-100); Potassium 3.7 mmoL/L (3.5-5.1); Sodium 140 mmol/L (136-145)
[2021-05-07 08:13] LABS: Anisocytosis 1+; Hypochromasia 3+; Lymphocytes % 3 % (10-50); Microcytosis 1+; Monocytes % 9 % (2-9); Neutrophils % 88 % (42-76); Platelet Estimate Normal; Total Cells Counted 100
--- NOTE | 2021-05-07 09:14 | HMH.ACPN2 ---
Internal Medicine - PN: Subj *Date: 05/07/21 *Time: 09:14 Interval history: looks better - will d/c rincon and has neg tb Exam Vital signs and Labs for Last 24 Hours: Temp Pulse Resp BP Pulse Ox 97.7 F 83 19 196/100 H 93 L 05/07/21 07:33 05/07/21 07:33 05/07/21 07:33 05/07/21 07:33 05/07/21 07:33 Laboratory Results - last 24 hr 05/03/21 17:00: TB Test (QFT) Nil 0.04, TB Test (QFT) Mitogen 0.77, TB Test (QFT) Ag 1 0.04, TB Test (QFT) Ag 2 0.05, TB Positive Criteria Comment, TB Test (QFT) Interp Negative 05/05/21 14:20: Antibody Identification Anti-Jka 05/07/21 06:22: WBC 7.8, RBC 3.24 L, Hgb 8.5 L, Hct 27.1 L, MCV 83.6, MCH 26.1 L, MCHC 31.2 L, RDW 16.5, Plt Count 348, MPV 7.4, Neut % (Auto) 87.2 H, Lymph % (Auto) 8.2 L, Hall % (Auto) 4.4, Eos % (Auto) 0.0 L, Baso % (Auto) 0.2, Neut # (Auto) 6.8, Lymph # (Auto) 0.7, Hall # (Auto) 0.3, Eos # (Auto) 0.0, Baso # (Auto) 0.0, Total Counted 100, Neutrophils % (Manual) 88 H, Lymphocytes % (Manual) 3 L, Monocytes % (Manual) 9, Platelet Estimate Normal, Hypochromasia 3+, Anisocytosis 1+, Microcytosis 1+ 05/07/21 06:22: Sodium 140, Potassium 3.7, Chloride 106, Carbon Dioxide 28, Anion Gap 9.7, BUN 17, Creatinine 0.70, Estimated Creat Clear 54, Estimated GFR 82, Est GFR ( Amer) 99, Glucose 135 H, Calcium 8.9 I & O for Last 24 hours: Intake & Output 07/15/21 07/16/21 07/17/21 07/18/21 11:59 11:59 11:59 11:59 Intake Total 600 / 600 940 / 940 800 / 800 1620 / 1620 Output Total 2024 900 / 900 745 / 745 2950 / 2950 Balance -1425 / -1425 40 / 40 55 / 55 -1330 / -1330 Weight 153 lb 9.6 oz 155 lb 6 oz 158 lb 8 oz 156 lb 9 oz Microbiology Reports for the Last 24 Hours: Microbiology 05/01/21 14:45 Blood Blood Culture - Final NO GROWTH AFTER 5 DAYS 05/01/21 14:45 Blood Blood Culture - Final NO GROWTH AFTER 5 DAYS - Constitutional no acute distress, thin - *Routine HEENT Exam Head: Present: normocephalic Eye: Present: EOMI, PERRL ENT: Present: mucous membranes dry - *Routine Neck Exam Present: supple - *Routine Respiratory Exam Present: decreased breath sounds - *Routine Cardiovascular Exam Present: RRR, murmur - *Routine Abdominal Exam Present: soft - *Routine Extremities Exam Absent: calf tenderness - *Routine Skin Exam Present: intact - *Routine Neurological Exam Present: alert, oriented X3, CN II-XII intact - Routine Psychiatric Exam Present: normal affect Assessment and Plan (1) Anemia Status: Acute Qualifiers: Anemia type: unspecified type Qualified Code(s): D64.9 - Anemia, unspecified Category: Medical Code(s): D64.9 - Anemia, unspecified (2) Pneumonia Status: Acute Qualifiers: Pneumonia type: due to unspecified organism Laterality: left Lung location: lower lobe of lung Qualified Code(s): J18.9 - Pneumonia, unspecified organism Category: Medical Code(s): J18.9 - Pneumonia, unspecified organism (3) COPD (chronic obstructive pulmonary disease) Status: Acute Qualifiers: COPD type: unspecified COPD Qualified Code(s): J44.9 - Chronic obstructive pulmonary disease, unspecified Category: Medical Code(s): J44.9 - Chronic obstructive pulmonary disease, unspecified (4) CAD (coronary artery disease) Status: Acute Qualifiers: Coronary Disease-Associated Artery/Lesion type: unspecified vessel or lesion type [place] vs. transplanted heart: [place] heart Associated angina: without angina Qualified Code(s): I25.10 - Atherosclerotic heart disease of [place] coronary artery without angina pectoris Category: Medical Code(s): I25.10 - Atherosclerotic heart disease of [place] coronary artery without angina pectoris (5) Stented coronary artery Status: Acute Category: Surgical Code(s): Z95.5 - Presence of coronary angioplasty implant and graft (6) Chest pain Status: Acute Qualifiers:
--- NOTE | 2021-05-07 09:17 | XR_ITS ---
PROCEDURE INFORMATION: Exam: XR Chest Exam date and time: 05/07/2021 9:17 AM Age: 75 years old Clinical indication: Cough TECHNIQUE: Imaging protocol: XR of the chest. Views: 2 views. COMPARISON: CR XR CHEST PORTABLE PICC PLAC 05/03/2021 4:25 PM FINDINGS: Lungs: Stable bilateral pleuroparenchymal changes without evidence of a new cardiopulmonary process. Pleural spaces: Unremarkable. No pleural effusion. No pneumothorax. Heart/Mediastinum: Stable small hiatal hernia. Bones/joints: Unremarkable. IMPRESSION: Stable bilateral pleuroparenchymal changes without evidence of a new cardiopulmonary process.
--- NOTE | 2021-05-07 15:08 | PC.NURSE ---
SHE IS AOX4, IS ABLE TO MAKE NEEDS KNOW TO STAFF, SHE HAS BEEN UP TO CHAIR AT INTERVALS THIS SHIFT. AMBULATING WITH STANDBY ASSIST TO THE RESTROOM. 1 SMALL FORMED BM NOTED THIS SHIFT, HER DUNLAP WAS REMOVED EARLY THIS MORNING AND PT HAS DEMONSTRATED THE ABILITY TO VOID WITHOUT DIFFICULTY. SHE DENIES N/V/D. SHE HAS BEEN MEDICATED PER MAR WITH PRN MORPHINE FOR C/O BACK PAIN. PT STATES THAT PAIN IS ADEQUATELY ALLEVIATED WITH ADMINISTRATION OF MORPHINE. PT CONTINUE TO REQUIRE O2 SUPPORT 3LNC. SHE REQUESTS BREATHING TREATMENTS AT REGULAR INTERVALS. SHE DID HAVE A SHOWER AND LINEN CHANGE TODAY. SHE REMAINS NSR ON TELEMETRY. NO NEEDS AT THIS TIME.
--- NOTE | 2021-05-07 18:19 | PC.NURSE ---
[facility] called to give update on bed availability. Still no beds available.
[2021-05-08] VITALS: BP 190/80; PULSE 60; PULSE 69; RESP 17; TEMP 36.5; O2SAT 97
[2021-05-08 04:00] VITALS: BP 170/60; PULSE 69; PULSE 70; RESP 16; TEMP 36.4; O2SAT 97
--- NOTE | 2021-05-08 04:04 | PC.NURSE ---
Patient BP elevated, has been asymptomatic, started Lisinopril 5mg on dayshift, rincon discontinued on dayshift, patient has urinated x 2 on bedside toilet. No s/s of acute distress noted at this time, call light within reach, bed at lowest level for safety; will continue to monitor.
[2021-05-08 05:00] VITALS: BMI 23.6
[2021-05-08 06:15] VITALS: PULSE 76; PULSE 79; O2SAT 99
[2021-05-08 06:52] LABS: Basophils % 0.2 % (0.1-2.0); Hematocrit 27.8 % (37.0-47.0); Hemoglobin 8.7 g/dL (12.2-16.2); Lymphocytes # 0.7 K/mm3 (0.7-4.5); Lymphocytes % 6.7 % (10-50); Mean Corpuscular HGB Conc 31.3 g/dL (31.8-35.4); Mean Corpuscular Hemoglobin 26.1 pg (27.0-31.2); Mean Corpuscular Volume 83.3 fl (81-99); Monocytes # 0.5 K/mm3 (0.1-1.0); Monocytes % 4.7 % (1.7-9.3); Neutrophils # 8.7 K/mm3 (1.8-7.8); Neutrophils % 88.5 % (37.0-80.0); Platelet Count 372 K/mm3 (142-424); Red Blood Count 3.34 M/mm3 (4.20-5.40); Red Cell Distribution Width 16.3 % (11.5-17.5); White Blood Count 9.8 K/mm3 (4.8-10.8)
[2021-05-08 06:57] LABS: MANUAL DIFFERENTIAL MANUAL DIFFERENTIAL (MANUAL DIFF)
[2021-05-08 07:06] LABS: Anion Gap 8.8 mEq/L (5-15); Blood Urea Nitrogen 23 mg/dl (7-17); Calcium 8.9 mg/dl (8.4-10.2); Carbon Dioxide 29 mmol/L (22.0-30.0); Chloride 106 mmol/L (98-107); Creatinine Clearance Estimated 54 mL/min (50-200); Estimated Glomerular Filt Rate 82 ml/min (>60); GFR (African American) 99 ML/MIN (>60); Glucose 133 mg/dl (74-100); Potassium 3.8 mmoL/L (3.5-5.1); Sodium 140 mmol/L (136-145)
[2021-05-08 07:14] LABS: Lymphocytes % 5 % (10-50); Monocytes % 3 % (2-9); Neutrophils % 92 % (42-76); Total Cells Counted 100
[2021-05-08 07:15] LABS: Hypochromasia 1+; Microcytosis 1+; Platelet Estimate Normal; Spherocytes 1+; Tear Drop Cells 1+
[2021-05-08 07:16] LABS: Acanthocytes 1+; Schistocytes 1+
[2021-05-08 08:00] VITALS: BP 157/73; PULSE 60; PULSE 83; RESP 18; TEMP 36.6; O2SAT 97
--- NOTE | 2021-05-08 09:26 | HMH.PTEV ---
Physical Therapy Evaluation Rehab PT IP Evaluation Start: 05/08/21 09:14 Freq: ONCE Status: Active Protocol: Document 05/08/21 09:22 WILLIAM (Rec: 05/08/21 09:26 WILLIAM [id number]) Subjective/History History History THis is the initial IP PT evalaution for Shaye Painting . Pt is a 75 y/o female admitted to [facility] for intractable coughing foud to have MRSA [place]. Pt has COPD, hx of pulmonary embioli and propensity for pneumonia. Pt lives in mobile home w/ and other family. Pt uses electric w/c, w/c, walker at home for mobility Subjective Subjective no complaints from pt Rehab PT IP Eval Objective Appearance Patient Behavior Appropriate,Cooperative Patient Orientation Person,Place,Time Difficulty following instructions none Speech Pattern Clear,Appropriate Ambulation Patient Able to Ambulate Yes Ambulation Observation IP General Gait Pattern Observation No Deviations/Normal Ambulation Distance (feet) 5 Ambulation Assistive Device None Ambulation Ability Supervision/Stand by Balance Ability to Arise Able, uses arms to help Sitting Balance Steady, safe Standing Balance Narrow stance w/o support Dynamic Sitting Balance Ability Good Dynamic Standing Balance Ability Fair Transfers Bed Transfer Ability Independent Chair Transfer Ability Independent Sit to Stand Bed Transfer Ability Independent Sit to Stand Chair Transfer Ability Independent ROM All Extremities PT ROM Status WFL MMT All Extremities PT MMT WFL Rehab PT IP prob,goals,plan Problems Date of Evaluation: 05/08/21 PT IP Problems Self care Rehab Potential Rehab Potential Innapropriate for Skilled Therapy Discharge Plan PT Discharge Plan Pt to dc to home w/ spouse and family support once medically stable G -code Required Yes Eval Complexity Eval Charge Codes 43933 - Moderate Complexity G Codes PT Current Status Self Care PT Current Status Modifier CJ-At least 20% but less than 40% impaired, limited or restricted PT Goal Status Self Care PT Goal Status Modifer CJ-At least 20% but less than
--- NOTE | 2021-05-08 09:43 | HMH.DCSUM ---
General - General Admission date:: 05/01/21 Discharge date: 05/08/21 HPI HPI: Patient is a 75-year-old white female, well-known to me from the office, who was seen today for ER follow-up. She presented to the emergency room at [facility] yesterday for intractable coughing and right-sided chest pain. Her work-up included a chest x-ray which showed bibasilar infiltrative processes, a CTA of her chest which was negative for pulmonary emboli, and venipuncture lab work showed a hemoglobin of 7.1. She was sent out with a prescription for Tussionex and Levaquin. She declined admission there in favor of follow-up with us. Patient has a history of stented coronary disease, and is on Plavix. Patient has a history of multiple pulmonary emboli, and had been on Xarelto in the past. Once resolution of the emboli was demonstrated on CTA the Xarelto was stopped. There was a point when Xarelto and Plavix overlapped, and during that time she required transfusion of several units of packed red cells. Patient relays that within the past few years she has had upper and lower endoscopy by Dr. Barclay in [place]. She relays that these were unremarkable. He did have her slated for a gastric emptying time, which she did not complete. She has had no evidence of hematemesis or dark stool. Her principal complaint is intractable coughing with right sided chest pain. She is admitted for further evaluation and treatment. Patient has a longstanding history of COPD, is oxygen dependent at home, and has a propensity for pneumonia. Hospital Course Hospital Course: Laboratory Tests 05/01/21 05/01/21 05/01/21 05:44 14:43 14:43 WBC RBC Hgb Hct MCV MCH MCHC RDW Plt Count MPV Neut % (Auto) Lymph % (Auto) Webb % (Auto) Eos % (Auto) Baso % (Auto) Neut # (Auto) Lymph # (Auto) Webb # (Auto) Eos # (Auto) Baso # (Auto) Total Counted Neutrophils % (Manual) Band Neutrophils % Lymphocytes % (Manual) Monocytes % (Manual) Platelet Estimate Hypochromasia Anisocytosis Microcytosis Spherocytes Tear Drop Cells Acanthocytes (Spur) Schistocytes D-Dimer Specimen Source Left radial O2 % 3 lpm nc ABG pH 7.41 ABG pCO2 39.1 ABG pO2 88.8 ABG HCO3 24.0 ABG Total CO2 25.2 ABG O2 Saturation 97 ABG Base Excess -0.7 Candido Test Acceptable ABG Lactate 1.1 Sodium Potassium Chloride Carbon Dioxide Anion Gap BUN Creatinine Estimated Creat Clear Estimated GFR Est GFR ( Amer) Glucose Calcium Iron TIBC Iron Saturation Total Bilirubin AST ALT Alkaline Phosphatase Troponin I Total Protein Albumin Globulin Albumin/Globulin Ratio Procalcitonin Urine Color Yellow Urine Appearance Clear Urine pH 5.0 Ur Specific [place] 1.025 Urine Protein Negative Urine Glucose (UA) Negative Urine Ketones Negative Urine Blood Negative Urine Nitrate Negative Urine Bilirubin Negative Urine Urobilinogen 0.2 Ur Leukocyte Esterase Trace Urine RBC None Urine WBC None Ur Squamous Epith Cells Occasional Urine Bacteria None Stool Occult Blood Vancomycin Peak Vancomycin Trough SARS-CoV-2 (PCR) Influenza A Untype (PCR) Influenza Type B (PCR) TB Test (QFT) Nil TB Test (QFT) Mitogen TB Test (QFT) Ag 1 TB Test (QFT) Ag 2 TB Positive Criteria TB Test (QFT) Interp Blood Type Antibody Screen Antibody Identification Crossmatch (AHG) 05/01/21 05/01/21 05/01/21 14:45 14:45 14:45 WBC 27.2 H* RBC 2.98 L Hgb 7.3 L* Hct 24.0 L MCV 80.5 L MCH 24.5 L MCHC 30.4 L RDW 15.5 Plt Count 370 MPV 8.3 Neut % (Auto) 92.9 H Lymph % (Auto) 3.6 L Webb % (Auto) 3.4 Eos % (Auto) 0.0 L Baso % (Auto) 0.0 L N
--- NOTE | 2021-05-08 10:41 | HMH.OTEV ---
OT Inpatient Evaluation Rehab OT IP Evaluation Start: 05/08/21 09:14 Freq: ONCE Status: Complete Protocol: Document 05/08/21 10:20 NEW (Rec: 05/08/21 10:41 NEW [id number]) Rehab OT IP Assessment Subjective History *Admission Date: 05/01/21 *Chief complaint: pneumonia and anemia *History of present illness: Patient is a 75-year-old white female, well-known to me from the office, who was seen today for ER follow-up. She presented to the emergency room at [facility] for intractable coughing and right-sided chest pain. Her work-up included a chest x-ray which showed bibasilar infiltrative processes, a CTA of her chest which was negative for pulmonary emboli, and venipuncture lab work showed a hemoglobin of 7.1. She was sent out with a prescription for Tussionex and Levaquin. She declined admission there in favor of follow-up with us. Patient has a history of stented coronary disease, and is on Plavix. Patient has a history of multiple pulmonary emboli, and had been on Xarelto in the past. Once resolution of the emboli was demonstrated on CTA the Xarelto was stopped. There was a point when Xarelto and Plavix overlapped, and during that time she required transfusion of several units of packed red cells. Patient relays that within the past few years she has had upper and lower endoscopy by Dr. Barclay in [place]. She relays that these were unremarkable. He did have her slated for a gastric emptying time, which she did not complete.
[2021-05-08 11:30] VITALS: PULSE 74; PULSE 78; O2SAT 97
[2021-05-08 11:39] LABS: POC Glucose,Bedside 112 (70-110)
== END 2021-05-08 11:55 | disposition home or self-care (01) | DRG 178 ==
PROVIDERS: Emergency Medicine; Nurse Practitioner Family; Admitting Provider Family Medicine; PCP Family Medicine; Visit Provider Family Medicine
DX: J15.212 Pneumonia due to Methicillin resistant Staphylococcus aureus (principal); J44.0 Chronic obstructive pulmonary disease with (acute) lower respiratory infection; D64.9 Anemia, unspecified; I25.10 Atherosclerotic heart disease of native coronary artery without angina pectoris; Z95.5 Presence of coronary angioplasty implant and graft; Z79.02 Long term (current) use of antithrombotics/antiplatelets; Z99.81 Dependence on supplemental oxygen; Z86.711 Personal history of pulmonary embolism; R91.8 Other nonspecific abnormal finding of lung field
CPT/HCPCS: 36569; 36415; 71045; 71046; 71275; 74176; 80048; 80053; 80202; 81001; 82272; 82803; 82962; 83540; 83550; 83605; 84145; 84484; 85007; 85025; 85378; 86480; 86850; 86870; 87040; 87070; 87077; 87186; 87205; 93005; 93306; 94640; 94760; 94761; 97162; 97165; C1751; G0328; J0456; J2185; J3370; P9016; Q9967; U0003

== ENCOUNTER → 2021-06-30 16:35 | Outpatient (CLI) | payer MEDICARE, BC, SELFPAY ==
[2021-06-30 18:38] LABS: Basophils # 0.1 K/mm3 (0-0.2); Basophils % 1.4 % (0.1-2.0); Eosinophils # 0.2 K/mm3 (0.0-0.4); Eosinophils % 3.2 % (0.1-12.0); Hematocrit 34.4 % (37.0-47.0); Hemoglobin 10.4 g/dL (12.2-16.2); Lymphocytes # 1.2 K/mm3 (0.7-4.5); Lymphocytes % 21.5 % (10-50); Mean Corpuscular HGB Conc 30.1 g/dL (31.8-35.4); Mean Corpuscular Hemoglobin 27.7 pg (27.0-31.2); Mean Platelet Volume 8.5 fl (7.4-10.4); Monocytes # 0.3 K/mm3 (0.1-1.0); Monocytes % 4.9 % (1.7-9.3); Neutrophils % 69.1 % (37.0-80.0); Platelet Count 329 K/mm3 (142-424); Red Blood Count 3.74 M/mm3 (4.20-5.40); Red Cell Distribution Width 17.3 % (11.5-17.5); White Blood Count 5.7 K/mm3 (4.8-10.8)
== END ==
PROVIDERS: Visit Provider Family Medicine
DX: D64.9 Anemia, unspecified (principal)
CPT/HCPCS: 85025

== ENCOUNTER 2021-10-10 14:48 | Observation (INO) | payer MEDICARE, BC, SELFPAY ==
[2021-10-10] VITALS (10 sets, daily range): BP systolic 154–220; BP diastolic 70–93; PULSE 60–95; RESP 16–21; TEMP 36.6–36.9; O2SAT 93–98; BMI 22.4; BMI 22.5; BMI 23.0
--- NOTE | 2021-10-10 15:05 | HMH.EDGENADL ---
ED Disposition Clinical Impression: Pulmonary mass, Hemoptysis Pneumonia Qualifiers: Pneumonia type: due to unspecified organism Laterality: right Lung location: upper lobe of lung Qualified Code(s): J18.9 - Pneumonia, unspecified organism Disposition: Admitted as Observation Condition on Discharge: Serious - Critical Care Critical Care Time: No Attestation: On , the high probability of a clinically significant, sudden or life threatening deterioration of the following system(s) required my full and direct attention, intervention and personal management. The time I documented below is in addition to time spent performing reported procedures but includes the following listed in this critical care notation. Medical Decision Making - Jeet Inquiry Pt receiving controlled substance: No Vital Signs: 10/10/21 15:00 Temperature 98.2 F Temperature Source Oral Pulse Rate [Left Brachial] 92 H Respiratory Rate 16 Blood Pressure [Left Arm] 193/74 H Blood Pressure Mean [Left Arm] 113 Blood Pressure Source [Left Arm] Automatic Cuff Blood Pressure Position [Left Arm] Sitting 02 Sat by Pulse Oximetry 93 L Oxygen Delivery Method Room Air - Lab Data Lab Results 10/10/21 15:20: WBC 8.1, RBC 3.81 L, Hgb 10.2 L, Hct 33.3 L, MCV 87.4, MCH 26.7 L, MCHC 30.6 L, RDW 14.8, Plt Count 364, MPV 7.2 L, Neut % (Auto) 77.1, Lymph % (Auto) 15.4, [place] % (Auto) 4.4, Eos % (Auto) 2.5, Baso % (Auto) 0.6, Neut # (Auto) 6.2, Lymph # (Auto) 1.3, [place] # (Auto) 0.4, Eos # (Auto) 0.2, Baso # (Auto) 0.0 10/10/21 15:20: Sodium 137, Potassium 4.2, Chloride 101, Carbon Dioxide 28, Anion Gap 12.2, BUN 22 H, Creatinine 0.80, Estimated Creat Clear 51, Estimated GFR 70, Est GFR ( Amer) 84, Glucose 79, Calcium 10.2, Troponin I < 0.01 10/10/21 15:20: PT 11.4, INR 1.01, APTT 26.1 10/10/21 16:07: SARS-CoV-2 (PCR) Not detected, Influenza A Untype (PCR) Not detected, Influenza Type B (PCR) Not detected 10/10/21 16:54: Lactate 0.6 L Result diagrams: 10/10/21 15:20 10/10/21 15:20 Orders (Tests/Meds): ED MEDICATIONS Generic Name Dose Route Start Last Admin Trade Name Freq PRN Reason Stop Dose Admin Sodium Chloride 3 ml 10/10/21 15:14 Sodium Chloride 3% 15ml Neb IH 11/09/21 15:13 ONCE PRN INDUCE SPUTUM COLLECTION Discontinued Medications Generic Name Dose Route Start Last Admin Trade Name Freq PRN Reason Stop Dose Admin Iopamidol 100 ml 10/10/21 16:05 10/10/21 16:06 Iopamidol-370 (76%);100ml Bottle IV 10/10/21 16:06 100 ml ONCE ONE Administration Sodium Chloride 40 ml 10/10/21 16:05 10/10/21 16:06 0.9 % Sodium Chloride 50 Ml Vial IV 10/10/21 16:06 40 ml ONCE ONE Administration Sodium Chloride 10 ml 10/10/21 16:05 10/10/21 16:06 Sodium Chloride 0.9% 10ml Syr (Rad Only) IV 10/10/21 16:06 10 ml ONCE ONE Administration ORDERS Category Date Time Status Chest XR 2 view (NOT portable) [XR chest 2V] Stat Exams 10/10/21 15:34 Taken Troponin I Q3H Lab 10/10/21 18:15 Ordered Troponin I Q3H Lab 10/10/21 21:15 Ordered Blood Culture Stat Micro 10/10/21 16:54 Received Sputum Culture & Gram Stain Stat Micro 10/10/21 15:14 Ordered - Physician Consults Physician Consulted: Kwaku Time: 17:20 Reason -: Admission Comment/Response: Agrees to admit the patient to the hospital. We discussed the patient's clinical information, including history, exam, laboratory and radiology results and ED course. Per hospital procedure, I will write temporary bridge inpatient orders on the patient. Specific orders requested by the admitting physician: Antibiotics for pneumonia, he will see the patient tonight General Adult HPI - General Stated complaint: coughing up blood Time Seen by Provider: 10/10/21 15:05 - History of Present Illness HPI narrative: 2-week history of hemoptysis and shortness of breath. Seen by Dr. Ames in his office today and sent to the emergency department. She has a prior
--- NOTE | 2021-10-10 15:14 | CT_ITS ---
PROCEDURE INFORMATION: Exam: CTA Chest With Contrast Exam date and time: 10/10/2021 3:14 PM Age: 76 years old Clinical indication: Shortness of breath; Additional info: Hemoptysis, SOA, h/o pe TECHNIQUE: Imaging protocol: Computed tomographic angiography of the chest with contrast. 3D rendering (Not supervised by radiologist): MIP and/or 3D reconstructed images were created by the technologist. Radiation optimization: All CT scans at this facility use at least one of these dose optimization techniques: automated exposure control; mA and/or kV adjustment per patient size (includes targeted exams where dose is matched to clinical indication); or iterative reconstruction. Contrast material: ISOVUE 370; Contrast volume: 100 ml; Contrast route: INTRAVENOUS (IV); COMPARISON: 1. CT ANGIO CHEST PE PROTOCOL 05/02/2021 9:[address] ANGIO CHEST 1:57 PM FINDINGS: Pulmonary arteries: No pulmonary embolus. No dissection or aneurysm in the chest. Aorta: See Other arteries finding. Other arteries: Moderate atherosclerosis. Unchanged appearance to the 8 mm probable penetrating ulcer anteriorly into the right of the descending thoracic aorta, series 5, image 62. No leak. Lungs: New focus of pleuroparenchymal scarring versus limited consolidation posteriorly in the right upper lobe. Pleuroparenchymal scarring and limited atelectasis. Pleural spaces: Unremarkable. No pneumothorax. No pleural effusion. Heart: Unremarkable. No cardiomegaly. No pericardial effusion. Lymph nodes: There is a right hilar soft tissue mass and/or confluent adenopathy which constricts and possibly invades the proximal bronchial tree to the right lower lobe suspicious for malignancy. This tracks adjacent to the proximal aspect of the bronchial tree to the right middle and lower lobes and measures approximately 3 x 3 cm. This should be considered malignant until proven otherwise. Moderate emphysema. Diaphragm: Large hiatal hernia again evident. Bones/joints: Unremarkable. No acute fracture. Soft tissues: Unremarkable. Other findings: Old granulomatous disease. IMPRESSION: 1. There is a right hilar soft tissue mass and/or confluent adenopathy which constricts and possibly invades the proximal bronchial tree to the right lower lobe suspicious for malignancy. This tracks adjacent to the proximal aspect of the bronchial tree to the right middle and lower lobes and measures approximately 3 x 3 cm. 2. New focus of pleuroparenchymal scarring versus limited consolidation posteriorly in the right upper lobe. 3. No pulmonary embolus. No dissection or aneurysm in the chest. 4. Moderate atherosclerosis. Unchanged appearance to the 8 mm probable penetrating ulcer anteriorly into the right of the descending thoracic aorta, series 5, image 62. No leak.
[2021-10-10 15:30] LABS: Basophils % 0.6 % (0.1-2.0); Eosinophils # 0.2 K/mm3 (0.0-0.4); Eosinophils % 2.5 % (0.1-12.0); Hematocrit 33.3 % (37.0-47.0); Hemoglobin 10.2 g/dL (12.2-16.2); Lymphocytes # 1.3 K/mm3 (0.7-4.5); Lymphocytes % 15.4 % (10-50); Mean Corpuscular HGB Conc 30.6 g/dL (31.8-35.4); Mean Corpuscular Hemoglobin 26.7 pg (27.0-31.2); Mean Corpuscular Volume 87.4 fl (81-99); Mean Platelet Volume 7.2 fl (7.4-10.4); Monocytes # 0.4 K/mm3 (0.1-1.0); Monocytes % 4.4 % (1.7-9.3); Neutrophils # 6.2 K/mm3 (1.8-7.8); Neutrophils % 77.1 % (37.0-80.0); Platelet Count 364 K/mm3 (142-424); Red Blood Count 3.81 M/mm3 (4.20-5.40); Red Cell Distribution Width 14.8 % (11.5-17.5); White Blood Count 8.1 K/mm3 (4.8-10.8)
--- NOTE | 2021-10-10 15:34 | XR_ITS ---
PROCEDURE: XR CHEST 2V CLINICAL HISTORY: soa, hemoptysis COMPARISON: CR XR CHEST PORTABLE from 05/02/[address] ANGIO CHEST PE PROTOCOL from 05/02/2021 CR XR CHEST PORTABLE PICC PLAC from 05/03/2021 CR XR CHEST 2V from 05/07/[address] ANGIO CHEST PE PROTOCOL from 10/10/2021 FINDINGS: Normal heart size. Medium-sized hiatal hernia. COPD changes. Two parenchymal a Passy is a right upper lobe possibly due to an area of scarring versus developing nodule. Chest CT may provide further evaluation. Atelectatic changes versus scarring in the right lung base and in the retrocardiac region on the left. No acute bony abnormalities. IMPRESSION: COPD changes with scattered areas of scarring. There are two 9 mm parenchymal opacities right upper lobe which could be due to an area of atelectasis versus scarring or developing nodule.. Consider chest CT for further evaluation. Dictated by: Candido Dan MD 10/11/2021 13:51 Candido Dan MD in [place] 10/11/2021 13:51
[2021-10-10 15:35] LABS: Anion Gap 12.2 mEq/L (5-15); Blood Urea Nitrogen 22 mg/dl (7-17); Calcium 10.2 mg/dl (8.4-10.2); Carbon Dioxide 28 mmol/L (22.0-30.0); Chloride 101 mmol/L (98-107); Creatinine Clearance Estimated 51 mL/min (50-200); Estimated Glomerular Filt Rate 70 ml/min (>60); GFR (African American) 84 ML/MIN (>60); Glucose 79 mg/dl (74-100); Potassium 4.2 mmoL/L (3.5-5.1); Sodium 137 mmol/L (136-145)
[2021-10-10 15:39] LABS: Activated Partial Thrombo Time 26.1 seconds (22.8-30.6); INR 1.01 (0.9-1.1); Prothrombin Time 11.4 seconds (10.1-12.5)
[2021-10-10 15:48] LABS: Troponin I < 0.01 ng/ml (0.00-0.034)
[2021-10-10 16:26] LABS: Coronavirus 19, PCR Not Detected (NotDetected); Influenza A, PCR Not Detected (NotDetected); Influenza B, PCR Not Detected (NotDetected)
[2021-10-10 17:13] LABS: Lactic Acid 0.6 mmol/L (0.7-2.1)
--- NOTE | 2021-10-10 17:55 | PC.NURSE ---
report called to lou tatum rn on second floor at this time
--- NOTE | 2021-10-10 18:11 | PC.NURSE ---
pt arrived to the floor at this time
--- NOTE | 2021-10-10 20:31 | HMH.HP ---
*Admission Date: 10/10/21 *Chief complaint: Hemoptysis *History of present illness: Patient is a 76-year-old white female, well known to me, who comes to the office with complaints of hemoptysis over the last 2 weeks. She reports passage of significant amounts of blood and clot. Patient has a history of tobacco for 43 years. She has a history of chronic lung disease with a propensity for pneumonia. Patient has a history of coronary artery disease multiple stent deployments. In [address] of the chest which demonstrated multiple pulmonary emboli. She was on a regimen of Xarelto for a fairly prolonged course. During that time she required several transfusions. She had had a GI work-up per Dr. Barclay in [place] and no obvious gastrointestinal source was located. Patient underwent a CTA of the chest in April of this year which suggested resolution of the pulmonary embolisms. At that point we stopped her Xarelto. Sequential hemoglobins were followed, and she stayed above 10. When seen in the exam room patient had no active hemoptysis. He did have some consolidation at the left base. He was sent to the emergency room for lab work and imaging studies. CT of the chest demonstrated no pulmonary embolism but did however show a right perihilar mass 3 x 3 cm. This is likely the etiology of her hemoptysis. 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 We had sought the input of a thoracic surgeon and no interventions were planned. Changes in the aorta are again demonstrated but appears stable. [facility] History Medical History: Reports:: Congestive Heart Failure, Chronic Obstructive Pulmonary Disease (COPD), Coronary Artery Disease, Deep Vein Thrombosis, Hiatal Hernia, Home Oxygen, Hyperlipidemia, Hypertension, Lung Disease Denies:: Cancer, Diabetes Mellitus Type 1, Diabetes Mellitus Type 2, MRSA *Have you ever received a pneumonia vaccine?: Yes *Have you received a flu vaccine this season?: No Other Medical History: Reports: Anemia, Arthritis, Cataracts, Glaucoma Other Surgeries: Yes: Cardiac Catheterization, Colonoscopy, Coronary Stent, EGD, Hysterectomy-Total Amputation: No - *Social History Last grade of school completed: High school graduate Smoking Status: Former smoker Tobacco Type: cigarettes # Packs/Day (cigarettes): 1 #Yrs smoked (if former smoker): 43 Alcohol Intake: never Substance Use Type: denies use *Occupational Status:: retired Housing: house Household Members: spouse *Travel in the last 8 weeks: None Family Hx:: Cancer, Coronary Artery Disease, Diabetes, Heart Attack, Hypertension, Thyroid Disorder, Substance abuse Review of Systems - Constitutional Reports anorexia - Eyes Denies change in vision - ENT Denies abnormal hearing - *Cardiovascular Reports shortness of breath with activity - *Respiratory Reports shortness of breath, Reports shortness of breath with activity, Reports coughing up blood - *Gastrointestinal Reports constipation, Denies abdominal pain, Denies vomiting blood - *Genitourinary Denies painful urination - *Musculoskeletal Reports joint pain - Integumentary/Breasts Denies yellowing of the skin - *Neurologic Reports unsteadiness, Denies memory loss - Psychiatric Denies behavioral changes - Endocrine Denies increased hunger - Hematologic/Lymphatic Reports easy bleeding, Reports easy bruising - Allergic/Immunologic Denies wheezing Meds Home Medications Medication Instructions Recorded Confirmed Type Trazodone HCl 100 mg PO HS 05/01/21 10/10/21 History carvediloL [Carvedilol 12.5mg Tab] 12.5 mg PO BID 05/01/21 10/10/21 History acetaminophen 300 mg-codeine 30 mg 1 tab PO TIDP PRN #90 tab 07/28/21 10/10/21 Rx tablet Clopidogrel Bisulfate [Plavix] See Rx Instructions .ROUTE .COMPLEX 10/10/21 10/10/21 History Allergies Allergy/AdvReac Type Severity Reaction Status Date / Time No Known Allergies Allergy Verifie
[2021-10-11] VITALS (26 sets, daily range): BP systolic 122–179; BP diastolic 55–84; PULSE 65–92; RESP 14–22; TEMP 36.1–36.9; O2SAT 91–100; BMI 22.5
--- NOTE | 2021-10-11 05:16 | PC.NURSE ---
Patient rested well through night. Vitals WNL except BP which has been running high tonight. Patient is asymptomatic with this. Given tylenol #3 at HS for c/o chronic back pain. Patient is alert, oriented x4 and cooperative with cares. Able to make need known. Patient remains on 2L per NC, tolerating well. Does have intermittent cough per report. Up with stand by assist to BSC. Adequate intake and output. IVF infusing per orders. Plan for pulmonology consult today.
[2021-10-11 07:17] LABS: Basophils % 0.6 % (0.1-2.0); Eosinophils # 0.2 K/mm3 (0.0-0.4); Hematocrit 27.6 % (37.0-47.0); Lymphocytes # 1.3 K/mm3 (0.7-4.5); Lymphocytes % 26.3 % (10-50); Mean Corpuscular HGB Conc 30.7 g/dL (31.8-35.4); Mean Corpuscular Hemoglobin 26.7 pg (27.0-31.2); Mean Corpuscular Volume 86.9 fl (81-99); Mean Platelet Volume 7.1 fl (7.4-10.4); Monocytes # 0.4 K/mm3 (0.1-1.0); Monocytes % 7.2 % (1.7-9.3); Neutrophils # 3.1 K/mm3 (1.8-7.8); Neutrophils % 61.9 % (37.0-80.0); Platelet Count 294 K/mm3 (142-424); Red Blood Count 3.17 M/mm3 (4.20-5.40); Red Cell Distribution Width 14.8 % (11.5-17.5)
[2021-10-11 07:35] LABS: Hemoglobin 8.5 g/dL (12.2-16.2)
--- NOTE | 2021-10-11 09:15 | PC.NURSE ---
SPUTUM SAMPLE TAKEN TO LAB @[id number]
--- NOTE | 2021-10-11 09:59 | HMH.PHAINT ---
verified home medication list using list from [facility]
--- NOTE | 2021-10-11 10:00 | HMH.PHAVTE ---
[facility] Pharmacy VTE Monitoring - Patient Demographics Admission date: 10/11/21 Report Date: 10/11/21 Time: 10:00 Allergies/Adverse Reactions: Patient Allergies No Known Allergies Allergy (Verified 10/10/21 15:15) Height: 1.73 m Weight: 67.43 kg Patient Problems: Current Active Problems Pulmonary mass (Acute) Hemoptysis (Acute) Pneumonia (Acute) Adult failure to thrive (Chronic) Erosive osteoarthritis of multiple sites (Chronic) Stented coronary artery (Chronic) Anemia (Chronic) CAD (coronary artery disease) (Chronic) COPD (chronic obstructive pulmonary disease) (Chronic) - VTE Risk Labs: VTE Related Lab Results Hgb 8.5 g/dL (12.2-16.2) L D 10/11/21 06:13 Hct 27.6 % (37.0-47.0) L 10/11/21 06:13 Plt Count 294 K/mm3 (142-424) 10/11/21 06:13 PT 11.4 seconds (10.1-12.5) 10/10/21 15:20 INR 1.01 (0.9-1.1) 10/10/21 15:20 APTT 26.1 seconds (22.8-30.6) 10/10/21 15:20 BUN 22 mg/dl (7-17) H 10/10/21 15:20 Creatinine 0.80 mg/dl (0.52-1.04) 10/10/21 15:20 Estimated Creat Clear 51 mL/min (50-200) 10/10/21 15:20 Was VTE Risk Assessment Performed: Yes VTE Risk Level: Moderate Risk Clinical Trial Participant: No - Prophylaxis VTE Prophylaxis Ordered?: Yes Types of VTE Prophylaxis: TEDS Knee High Location of Applied Device: Bilateral Lower Extremeties
--- NOTE | 2021-10-11 10:32 | HMH.PULMCON ---
*Admission Date: 10/11/21 *Reason for consult:: Hemoptysis *History of present illness: Ms. Painting is 76-year-old male current former smoker greater than [id number] smoking history last more greater than 15 years ago presented to the hospital with a history monoparesis and pulmonary was called for further management. [facility] History Medical History: Reports:: Congestive Heart Failure, Chronic Obstructive Pulmonary Disease (COPD), Coronary Artery Disease, Deep Vein Thrombosis, Hiatal Hernia, Home Oxygen, Hyperlipidemia, Hypertension, Lung Disease Denies:: Cancer, Diabetes Mellitus Type 1, Diabetes Mellitus Type 2, MRSA *Have you ever received a pneumonia vaccine?: Yes *Have you received a flu vaccine this season?: No Other Medical History: Reports: Anemia, Arthritis, Cataracts, Glaucoma Other Surgeries: Yes: Cardiac Catheterization, Colonoscopy, Coronary Stent, EGD, Hysterectomy-Total Amputation: No - *Social History Last grade of school completed: High school graduate Smoking Status: Former smoker Tobacco Type: cigarettes # Packs/Day (cigarettes): 1 #Yrs smoked (if former smoker): 43 Alcohol Intake: never Substance Use Type: denies use *Occupational Status:: retired Housing: house Household Members: spouse *Travel in the last 8 weeks: None Family Hx:: Cancer, Coronary Artery Disease, Diabetes, Heart Attack, Hypertension, Thyroid Disorder, Substance abuse ROS - Cons Denies anorexia, Denies body ache(s), Denies chills - ENT Denies bleeding gums - Card Reports shortness of breath, Reports shortness of breath with activity - Resp Respiratory: Reports cough, Reports dyspnea, Reports dyspnea on exertion, Denies coughing up blood, Denies cough with sputum production - GI Gastrointestingal: Denies: abdominal pain - Psych Denies thoughts of hurting/killing others, Denies thoughts of hurting/killing yourself Meds Home Medications Medication Instructions Recorded Confirmed Type Trazodone HCl 100 mg PO HS 05/01/21 10/10/21 History carvediloL [Carvedilol 12.5mg Tab] 12.5 mg PO BID 05/01/21 10/10/21 History acetaminophen 300 mg-codeine 30 mg 1 tab PO TIDP PRN #90 tab 07/28/21 10/10/21 Rx tablet Clopidogrel Bisulfate [Plavix] 75 mg PO DAILY 10/10/21 10/11/21 History Allergies Allergy/AdvReac Type Severity Reaction Status Date / Time No Known Allergies Allergy Verified 10/10/21 15:15 Exam - Constitutional Constitutional:: Present: no acute distress, comfortable - HENMT Exam HENMT: Present: normocephalic, atraumatic - Eye Exam Eyes:: Present: normal appearance both eyes and related structures - Neck Exam Neck:: Present: normal visual inspection - Respiratory Exam Respiratory:: Present: able to speak in complete sentences, no respiratory distress, normal respiratory effort, wheezing. Absent: crackles - Cardiovascular Exam Cardiac:: Present: S1, S2 - GI Exam GI:: Present: soft - Skin Exam Skin: Present: warm, no rash, dry - Neurological Exam Neurological: Present: alert, awake, normal cognition - Extremities Exam Extremities: Present: no cyanosis, no clubbing, no edema Internal Medicine - CN: Reslt - Labs CBC & Chem 7: 10/11/21 06:13 10/10/21 15:20 Labs: Short CBC 10/10/21 10/11/21 Range/Units 15:20 06:13 WBC 8.1 5.0 D (4.8-10.8) K/mm3 Hgb 10.2 L 8.5 L D (12.2-16.2) g/dL Hct 33.3 L 27.6 L (37.0-47.0) % Plt Count 364 294 (142-424) K/mm3 [facility] 10/10/21 15:20 Sodium 137 Potassium 4.2 Chloride 101 Carbon Dioxide 28 BUN 22 H Creatinine 0.80 Glucose 79 Calcium 10.2 Cardiac Enzymes 10/10/21 Range/Units 15:20 Troponin I < 0.01 (0.00-0.034) ng/ml Assessment and Plan (1) Hemoptysis Status: Acute Category: Medical Code(s): R04.2 - Hemoptysis (2) Pneumonia Status: Acute Qualifiers: Pneumonia type: due to unspecified organism Laterality: left Lung location: lower lobe of lung Qualified Code(s): J18.
[2021-10-11 11:19] LABS: Basophils # 0.1 K/mm3 (0-0.2); Basophils % 0.9 % (0.1-2.0); Eosinophils # 0.2 K/mm3 (0.0-0.4); Hematocrit 27.7 % (37.0-47.0); Hemoglobin 8.6 g/dL (12.2-16.2); Lymphocytes # 1.1 K/mm3 (0.7-4.5); Lymphocytes % 20.6 % (10-50); Mean Corpuscular Hemoglobin 27.2 pg (27.0-31.2); Mean Corpuscular Volume 87.6 fl (81-99); Mean Platelet Volume 7.6 fl (7.4-10.4); Monocytes # 0.3 K/mm3 (0.1-1.0); Monocytes % 6.4 % (1.7-9.3); Neutrophils # 3.6 K/mm3 (1.8-7.8); Neutrophils % 68.2 % (37.0-80.0); Platelet Count 317 K/mm3 (142-424); Red Blood Count 3.16 M/mm3 (4.20-5.40); Red Cell Distribution Width 15.8 % (11.5-17.5); White Blood Count 5.3 K/mm3 (4.8-10.8)
--- NOTE | 2021-10-11 11:30 | P.PN_ITS ---
[facility] Anesthesia Checklist - Patient Identification Patient Identification: Arm Band - Structural Data Admitted From: Home Planned Operative Procedure/s: Bronchoscopy Consent for Planned Operative Procedure(s) Verified: Yes - NPO Status Verified Time NPO: 07:00 - Airway Assessment C-Spine Mobility Assessed: Yes TMJ Mobility Assessed: Yes Dentition: Edentulous - Neurological Assessment Level of Consciousness: Awake Hx Seizures: No Numbness or tingling in extremities: No - Anesthesia Plan Anesthesia Risk discussed: Yes Anesthesia Plan: Verified ASA Class: IV (IV E) Anesthesia Type: General [facility] History I have reviewed the patient's past medical history: Yes Medical History: Reports:: Congestive Heart Failure, Chronic Obstructive Pulmonary Disease (COPD), Coronary Artery Disease, Deep Vein Thrombosis, Hiatal Hernia, Home Oxygen, Hyperlipidemia, Hypertension, Lung Disease, Pulmonary Embolism Denies:: Cancer, Diabetes Mellitus Type 1, Diabetes Mellitus Type 2, MRSA *Have you ever received a pneumonia vaccine?: Yes *Have you received a flu vaccine this season?: No Other Medical History: Reports: Anemia, Arthritis, Cataracts, Glaucoma, Other (Cavitary lesion of lung) Anesthesia experience/problems:: None Other Surgeries: Yes: Cardiac Catheterization, Colonoscopy, Coronary Stent, EGD, Hysterectomy-Total Amputation: No - *Social History Last grade of school completed: High school graduate Smoking Status: Former smoker Tobacco Type: cigarettes # Packs/Day (cigarettes): 1 #Yrs smoked (if former smoker): 43 Alcohol Intake: never Substance Use Type: denies use *Occupational Status:: retired Housing: house Household Members: spouse *Travel in the last 8 weeks: None Family Hx:: Cancer, Coronary Artery Disease, Diabetes, Heart Attack, Hypertension, Thyroid Disorder, Substance abuse
--- NOTE | 2021-10-11 13:43 | HMH.ACPN2 ---
Internal Medicine - PN: Subj *Date: 10/11/21 *Time: 08:10 Interval history: pt states she is doing well, states she has been coughing up blood for a few months and showed pictures of blood Exam Vital signs and Labs for Last 24 Hours: Temp Pulse Resp BP Pulse Ox 98.5 F 65 20 179/84 H 100 10/11/21 11:40 10/11/21 11:40 10/11/21 11:40 10/11/21 11:40 10/11/21 11:40 Laboratory Results - last 24 hr 10/10/21 15:20: WBC 8.1, RBC 3.81 L, Hgb 10.2 L, Hct 33.3 L, MCV 87.4, MCH 26.7 L, MCHC 30.6 L, RDW 14.8, Plt Count 364, MPV 7.2 L, Neut % (Auto) 77.1, Lymph % (Auto) 15.4, [place] % (Auto) 4.4, Eos % (Auto) 2.5, Baso % (Auto) 0.6, Neut # (Auto) 6.2, Lymph # (Auto) 1.3, [place] # (Auto) 0.4, Eos # (Auto) 0.2, Baso # (Auto) 0.0 10/10/21 15:20: Sodium 137, Potassium 4.2, Chloride 101, Carbon Dioxide 28, Anion Gap 12.2, BUN 22 H, Creatinine 0.80, Estimated Creat Clear 51, Estimated GFR 70, Est GFR ( Amer) 84, Glucose 79, Calcium 10.2, Troponin I < 0.01 10/10/21 15:20: PT 11.4, INR 1.01, APTT 26.1 10/10/21 16:07: SARS-CoV-2 (PCR) Not detected, Influenza A Untype (PCR) Not detected, Influenza Type B (PCR) Not detected 10/10/21 16:54: Lactate 0.6 L 10/11/21 06:13: WBC 5.0 D, RBC 3.17 L, Hgb 8.5 L D, Hct 27.6 L, MCV 86.9, MCH 26.7 L, MCHC 30.7 L, RDW 14.8, Plt Count 294, MPV 7.1 L, Neut % (Auto) 61.9, Lymph % (Auto) 26.3, [place] % (Auto) 7.2, Eos % (Auto) 4.0, Baso % (Auto) 0.6, Neut # (Auto) 3.1, Lymph # (Auto) 1.3, [place] # (Auto) 0.4, Eos # (Auto) 0.2, Baso # (Auto) 0.0 10/11/21 11:04: WBC 5.3, RBC 3.16 L, Hgb 8.6 L, Hct 27.7 L, MCV 87.6, MCH 27.2, MCHC 31.0 L, RDW 15.8, Plt Count 317, MPV 7.6, Neut % (Auto) 68.2, Lymph % (Auto) 20.6, [place] % (Auto) 6.4, Eos % (Auto) 4.0, Baso % (Auto) 0.9, Neut # (Auto) 3.6, Lymph # (Auto) 1.1, [place] # (Auto) 0.3, Eos # (Auto) 0.2, Baso # (Auto) 0.1 I & O for Last 24 hours: Intake & Output 10/09/21 10/10/21 10/11/21 10/12/21 11:59 11:59 11:59 11:59 Intake Total 1160 / 1160 Output Total 0 / 0 Balance 1160 / 1160 Weight 148 lb 10.523 oz Microbiology Reports for the Last 24 Hours: Microbiology 10/11/21 09:10 Sputum - Expectorated Sputum Gram Stain - Final - Constitutional no acute distress - *Routine HEENT Exam Head: Present: normocephalic Eye: Present: PERRL ENT: Present: mucous membranes moist - *Routine Neck Exam Present: supple. Absent: lymphadenopathy - *Routine Respiratory Exam Present: wheezes, diminished air movement - *Routine Cardiovascular Exam Present: RRR - *Routine Abdominal Exam Present: soft, normoactive bowel sounds. Absent: tenderness - *Routine Extremities Exam Absent: cyanosis, clubbing, edema - *Routine Skin Exam Present: warm. Absent: rash - *Routine Neurological Exam Present: alert, oriented X3 Assessment and Plan (1) Hemoptysis Status: Acute Category: Medical Code(s): R04.2 - Hemoptysis (2) Pneumonia Status: Acute Qualifiers: Pneumonia type: due to unspecified organism Laterality: left Lung location: lower lobe of lung Qualified Code(s): J18.9 - Pneumonia, unspecified organism Category: Medical Code(s): J18.9 - Pneumonia, unspecified organism (3) Pulmonary mass Status: Acute Category: Medical Code(s): R91.8 - Other nonspecific abnormal finding of lung field (4) Adult failure to thrive Status: Chronic Category: Medical Code(s): R62.7 - Adult failure to thrive (5) Anemia Status: Chronic Qualifiers: Anemia type: unspecified type Qualified Code(s): D64.9 - Anemia, unspecified Category: Medical Code(s): D64.9 - Anemia, unspecified (6) CAD (coronary artery disease) Status: Chronic Qualifiers: Coronary Disease-Associated Artery/Lesion type: [place] artery [place] vs. transplanted heart: [place] heart Associated angina: without angina Qualified Code(s): I25.10 - Atherosclerotic heart disease of [place] coronary artery without angina pectoris Catego
--- NOTE | 2021-10-11 15:03 | HMH.ANESI ---
[facility] Anesthesia Record Part I Intake, IV Amount: 500 Estimated blood loss (mL): 5 Urine output (mL): 0 Blood Pressure: 129/63 SaO2: 95 Pulse Rate: 74 Respiratory Rate: 22 Temperature: 97 F Patient is:: Awake Stable to PACU at:: 15:02
--- NOTE | 2021-10-11 15:50 | SUR.PHASEI ---
1532- [facility] 1534- pt left in stable condition with gaye stafford on [facility] floor. Transported to the floor on portable oxygen
--- NOTE | 2021-10-11 16:59 | P.PCN_ITS ---
- Procedure: Date: 10/11/21 Patient Date of :: 1945 Procedure Performed:: Bronchoscopy with airway examination, bronchoalveolar lavage and endobronchial biopsy Indications:: Hemoptysis. Bronchial stenosis. Performing Provider:: Lavern Chairez MD Referring Provider:: Dr. Ames Sedation:: General anesthesia Procedure:: Bronchoscopy examination, bronchoalveolar lavage and endobronchial biopsy. Clean therapeutic bronchoscopy was advanced the ET tube and airways were examined up to subsegmental bronchi. Near complete stenosis with endobronchial l esion of right lower lobe bronchus branching to ALP segments noted. Endobronchial biopsies were performed and were sent in formalin for cytopathological examination. Bronchoalveolar lavage was also performed in the right lower lobe and were sent for cytopathological examination. No other endobronchial lesions noted. Airway examination of the left lung appeared grossly normal. No evidence of bleeding noted after the procedure. Patient tolerated the procedure well. Findings:: Please see the procedure note Recommendations:: Please see the procedure note and progress note from today Complications:: None Estimated blood obtained (mL): 10
[2021-10-12] VITALS: BP 125/52; PULSE 74; RESP 16; TEMP 36.5; O2SAT 94
[2021-10-12 04:00] VITALS: BP 186/78; PULSE 69; RESP 16; TEMP 36.4; O2SAT 97
[2021-10-12 05:40] VITALS: BMI 23.4
--- NOTE | 2021-10-12 06:36 | PC.NURSE ---
Addendum entered by Bea Wood RN 10/12/21 07:03: Per patient I wear 2L at home Patient placed back on 2LNC for comfort per RT Original Note: Patient has been titrated down on oxygen requirements. Patient is currently on RA at this time.
[2021-10-12 06:42] VITALS: PULSE 68; O2SAT 98
[2021-10-12 07:23] LABS: Basophils % 0.3 % (0.1-2.0); Hematocrit 30.4 % (37.0-47.0); Hemoglobin 9.3 g/dL (12.2-16.2); Lymphocytes # 0.7 K/mm3 (0.7-4.5); Lymphocytes % 16.3 % (10-50); Mean Corpuscular HGB Conc 30.5 g/dL (31.8-35.4); Mean Corpuscular Hemoglobin 26.7 pg (27.0-31.2); Mean Corpuscular Volume 87.5 fl (81-99); Mean Platelet Volume 7.7 fl (7.4-10.4); Monocytes # 0.1 K/mm3 (0.1-1.0); Monocytes % 3.2 % (1.7-9.3); Neutrophils # 3.4 K/mm3 (1.8-7.8); Neutrophils % 80.1 % (37.0-80.0); Platelet Count 351 K/mm3 (142-424); Red Blood Count 3.47 M/mm3 (4.20-5.40); Red Cell Distribution Width 15.9 % (11.5-17.5); White Blood Count 4.3 K/mm3 (4.8-10.8)
[2021-10-12 07:29] LABS: Chloride 109 mmol/L (98-107); Sodium 141 mmol/L (136-145)
[2021-10-12 07:30] LABS: Potassium 4.4 mmoL/L (3.5-5.1)
[2021-10-12 07:33] LABS: Anion Gap 10.4 mEq/L (5-15); Blood Urea Nitrogen 16 mg/dl (7-17); Calcium 9.1 mg/dl (8.4-10.2); Carbon Dioxide 26 mmol/L (22.0-30.0); Creatinine Clearance Estimated 53 mL/min (50-200); Estimated Glomerular Filt Rate 81 ml/min (>60); GFR (African American) 98 ML/MIN (>60); Glucose 125 mg/dl (74-100)
[2021-10-12 07:36] VITALS: BP 153/62; PULSE 77; TEMP 36.2
--- NOTE | 2021-10-12 07:36 | HMH.ANESII ---
[facility] Anesthesia Record Part II Discharge Time: 15:33 Destination: Medical Surgical Department PACU nurse assessment reviewed?: Yes Patient Condition:: Good Anesthesia Complications:: None Swallowing reflex intact?: Yes Cyanosis?: No Blood Pressure: 153/62 Pulse Rate: 77 Temperature: 97.1 F Mental Status: Alert & Oriented Pain level:: 0 Nausea and/or vomitting:: None Intake, IV Amount: 0
[2021-10-12 08:00] VITALS: BP 153/58; PULSE 84; RESP 22; TEMP 36.6; O2SAT 93
--- NOTE | 2021-10-12 09:28 | HMH.DCSUM ---
General - General Admission date:: 10/10/21 Discharge date: 10/12/21 HPI HPI: Patient is a 76-year-old white female, well known to id, who comes to the office with complaints of hemoptysis over the last 2 weeks. She reports passage of significant amounts of blood and clot. Patient has a history of tobacco for 43 years. She has a history of chronic lung disease with a propensity for pneumonia. Patient has a history of coronary artery disease multiple stent deployments. In [address] of the chest which demonstrated multiple pulmonary emboli. She was on a regimen of Xarelto for a fairly prolonged course. During that time she required several transfusions. She had had a GI work-up per Dr. Barclay in [place] and no obvious gastrointestinal source was located. Patient underwent a CTA of the chest in April of this year which suggested resolution of the pulmonary embolisms. At that point we stopped her Xarelto. Sequential hemoglobins were followed, and she stayed above 10. When seen in the exam room patient had no active hemoptysis. He did have some consolidation at the left base. He was sent to the emergency room for lab work and imaging studies. CT of the chest demonstrated no pulmonary embolism but did however show a right perihilar mass 3 x 3 cm. This is likely the etiology of her hemoptysis. 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 We had sought the input of a thoracic surgeon and no interventions were planned. Changes in the aorta are again demonstrated but appears stable. Hospital Course Hospital Course: Patient is a 76-year-old white female, well known to id, who comes to the office with complaints of hemoptysis over the last 2 weeks. She reports passage of significant amounts of blood and clot. When seen in the exam room patient had no active hemoptysis. He did have some consolidation at the left base. He was sent to the emergency room for lab work and imaging studies. CT of the chest demonstrated no pulmonary embolism but did however show a right perihilar mass 3 x 3 cm. This is likely the etiology of her hemoptysis. 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 We had sought the input of a thoracic surgeon and no interventions were planned. Changes in the aorta are again demonstrated but appears stable. Lab work in ER on actionable, hemoglobin stable normal white blood cell count Pulmonology was consulted 10/11/21 Bronchoscopy: Procedure:: Bronchoscopy examination, bronchoalveolar lavage and endobronchial biopsy. Clean therapeutic bronchoscopy was advanced the ET tube and airways were examined up to subsegmental bronchi. Near complete stenosis with endobronchial lesion of right lower lobe bronchus branching to ALP segments noted. Endobronchial biopsies were performed and were sent in formalin for cytopathological examination. Bronchoalveolar lavage was also performed in the right lower lobe and were sent for cytopathological examination. No other endobronchial lesions noted. Airway examination of the left lung appeared grossly normal. No evidence of bleeding noted after the procedure. Patient tolerated the procedure well. Pulmonolgy has seen and recommends: Patient examined, recovering from the procedure well. Patient noted right lower lobe endobronchial lesion with near complete stenosis highly concerning for malignancy. Endobronchial biopsies and BAL are sent for cytopathological examination. Results were discussed with the patient. If Patient remains clinically stable with no episodes hemoptysis / respiratory distress 24 hours post procedure, can be discharged with pulmonary clinic follow-up in 5 days. We will also recommend to hold her Plavix for 48 hours. Antibiotics can be weaned to levofloxacin to complete a 5-day course upon discharge. 76-year-old female patient resting in bed quietly she does report some no
--- NOTE | 2021-10-12 09:53 | SW/DCPLANNER ---
The plan is for this patient to discharge home today. Patient currently has home O2 and nebulizer machine. Patient has no further needs at this time.
--- NOTE | 2021-10-12 10:27 | HMH.PTEV ---
Physical Therapy Evaluation Rehab PT IP Evaluation Start: 10/12/21 09:42 Freq: ONCE Status: Active Protocol: Document 10/12/21 10:18 WILLIAM (Rec: 10/12/21 10:27 WILLIAM [id number]) Subjective/History History History Patient is a 76-year-old white female who comes to the office with complaints of hemoptysis over the last 2 weeks. She reports passage of significant amounts of blood and clot. Patient has a history of tobacco for 43 years. She has a history of chronic lung disease with a propensity for pneumonia. Patient has a history of coronary artery disease multiple stent deployments. Copied from H&P Subjective Subjective Pt reports 07/30 pain - nsg in room when stated this - pt does report willing to participate w/ evaluation - pt reports she lives in mobile home w/ , son, daughter -in-law, and grandson. Pt reports she is never alone. Pt states AD's at home include walker, cane, wheelchair and powerchair. Pt states she uses suppO2 24/7 at 2L/min. Pt reports she uses AD and furniture to ambulate and as long as she holds on she's fine. Pt also states she has hospital bed and bedside commode at home. Rehab PT IP Eval Objective Appearance Patient Behavior Appropriate,Cooperative Patient Orientation Place,Name,Birthday,Year Difficulty following instructions none Speech Pattern Clear,Appropriate Ambulation Patient Able to Ambulate Yes Ambulation Observation IP General Gait Pattern Observation Shuffling Step Ambulation Distance (feet) 2 Ambulation Assistive Device None Ambulation Ability Contact Guard/Hand Hold Balance Ability to Arise Able, uses arms to help Sitting Balance Steady, safe Standing Balance Steady, wide stance Dynamic Sitting Balance Ability Good Dynamic Standing Balance Ability Fair Transfers Bed Transfer Abilit
== END 2021-10-12 12:15 | disposition home or self-care (01) ==
LOC: ER 16:25 → 2ND 17:39
PROVIDERS: Internal Medicine Pulmonary Disease; Nurse Practitioner Family; Admitting Provider Family Medicine; Emergency Provider Emergency Medicine; PCP Family Medicine; Visit Provider Family Medicine
PROC: (CPT 31624; principal; 2021-10-11 14:00)
DX: J18.9 Pneumonia, unspecified organism (principal); R04.2 Hemoptysis; C34.31 Malignant neoplasm of lower lobe, right bronchus or lung; R62.7 Adult failure to thrive; D64.9 Anemia, unspecified; Z79.01 Long term (current) use of anticoagulants; J44.9 Chronic obstructive pulmonary disease, unspecified; I25.10 Atherosclerotic heart disease of native coronary artery without angina pectoris; M15.4 Erosive (osteo)arthritis; Z95.5 Presence of coronary angioplasty implant and graft; I11.0 Hypertensive heart disease with heart failure; I50.9 Heart failure, unspecified; Z99.81 Dependence on supplemental oxygen; Z79.899 Other long term (current) drug therapy; Z20.822 Contact with and (suspected) exposure to COVID-19
CPT/HCPCS: 31624; 31625; G0378; 36415; 71046; 71275; 80048; 83605; 84484; 85025; 85610; 85730; 87040; 87070; 87205; 88112; 88305; 88342; 94640; 94760; 94761; 97162; 99284; C9803; J0330; J0456; J2405; Q9967; U0003; U0005

== ENCOUNTER 2021-10-30 10:43 | Emergency (ER) | payer MEDICARE, SELFPAY ==
[2021-10-30] VITALS (7 sets, daily range): BP systolic 95–105; BP diastolic 39–73; PULSE 57–62; RESP 16–18; TEMP 36.9; O2SAT 95–99; BMI 22.8
--- NOTE | 2021-10-30 10:58 | CT_ITS ---
FINAL REPORT CLINICAL HISTORY: trauma FINDINGS: Axial CT images of the thoracic spine were obtained without contrast. Sagittal and coronal reformatted images were also obtained. This study was performed with techniques to keep radiation doses as low as reasonably achievable (ALARA). Individualized dose reduction techniques using automated exposure control or adjustment of mA and/or kV according to the patient's size were employed. There is no evidence of fracture. The vertebral alignment is normal. There are moderate and severe degenerative changes with multilevel osteophyte formation. There is rightward curvature. Presumed scarring is seen in the lungs. There is a large hiatal hernia. A moderate pericardial effusion is similar to a prior CT from April of 2021. There is a small left pleural effusion. IMPRESSION: No fracture or acute bony abnormality. Moderate and severe degenerative changes. Reviewed, Interpreted and Dictated by David Jane III, MD Transcribed by Simone Burgses Authenticated by David Jane III, MD on 10/30/2021 01:23:35 PM [facility]
--- NOTE | 2021-10-30 10:58 | CT_ITS ---
FINAL REPORT TECHNIQUE: Axial imaging of the lumbar spine was obtained without contrast. Sagittal and coronal reformatted images were also obtained and reviewed. This study was performed with techniques to keep radiation doses as low as reasonably achievable (ALARA). Individualized dose reduction techniques using automated exposure control or adjustment of mA and/or kV according to the patient''s size were employed. CLINICAL HISTORY: trauma FINDINGS: There is no fracture. The vertebral alignment is normal. There is multilevel severe degenerative change with bulges and osteophytes. There is facet arthropathy. There is multilevel neural foraminal narrowing ranging from mild to severe. There is leftward curvature. There is left renal scarring. A small nonobstructing right renal stone is seen. There is a nonspecific small right renal mass that is stable from the prior CT dated April of 2021. IMPRESSION: Multilevel severe degenerative change without acute bony abnormality. Reviewed, Interpreted and Dictated by David Jane III, MD Transcribed by Simone Burgess Authenticated by David Jane III, MD on 10/30/2021 01:23:50 PM [facility]
--- NOTE | 2021-10-30 10:58 | CT_ITS ---
FINAL REPORT TECHNIQUE: Axial images were obtained from skull base to the thoracic inlet by computed tomography. Coronal and sagittal reconstruction process performed. This study was performed with techniques to keep radiation doses as low as reasonably achievable (ALARA). Individualized dose reduction techniques using automated exposure control or adjustment of mA and/or kV according to the patient''s size were employed. CLINICAL HISTORY: trauma FINDINGS: There is no acute fracture or subluxation. No significant spinal or neuroforaminal canal stenosis is seen. There are moderate degenerative changes. The facets are normally aligned. The soft tissues are unremarkable. Limited images of the lung apices are unremarkable. IMPRESSION: No acute fracture. Reviewed, Interpreted and Dictated by David Jane III, MD Transcribed by Conchita Brooks Authenticated by David Jane III, MD on 10/30/2021 01:23:41 PM [facility]
--- NOTE | 2021-10-30 10:58 | CT_ITS ---
FINAL REPORT CLINICAL HISTORY: trauma FINDINGS: Axial images of the head were obtained without contrast. Coronal reformatted images were also obtained. This study was performed with techniques to keep radiation doses as low as reasonably achievable (ALARA). Individualized dose reduction techniques using automated exposure control or adjustment of mA and/or kV according to the patient''s size were employed. There is motion artifact on many sequences. There is generalized age appropriate atrophy. There is no evidence of intracranial hemorrhage or mass. The ventricular size is within normal limits. There is no evidence of shift of the midline structures. No skull abnormality is seen on the bone window images. IMPRESSION: No acute intracranial abnormality. Reviewed, Interpreted and Dictated by David Jane III, MD Transcribed by Conchita Brooks Authenticated by David Jane III, MD on 10/30/2021 01:23:[address] [facility]
--- NOTE | 2021-10-30 11:25 | HMH.EDFALL ---
ED Disposition Clinical Impression: Accidental fall Qualifiers: Encounter type: initial encounter Qualified Code(s): W19.XXXA - Unspecified fall, initial encounter Closed head injury Qualifiers: Encounter type: initial encounter Qualified Code(s): S09.90XA - Unspecified injury of head, initial encounter Disposition: Home, Self-Care Condition on Discharge: Good Instructions: How to Prevent Falls Referrals: Shiraz Ames MD [Primary Care Provider] - - Critical Care Critical Care Time: No Attestation: On 10/30/21, the high probability of a clinically significant, sudden or life threatening deterioration of the following system(s) required my full and direct attention, intervention and personal management. The time I documented below is in addition to time spent performing reported procedures but includes the following listed in this critical care notation. Medical Decision Making - Medical Records Medical records reviewed: Yes: I reviewed the patient's medical records. - Jeet Inquiry Pt receiving controlled substance: Yes Jeet was queried for this patient: No Reason not queried -: Jeet login issues Risks and benefits of using a controlled substance: were discussed with pt by me Vital Signs: 10/30/21 10:43 10/30/21 11:00 10/30/21 11:49 Temperature 98.5 F Temperature Source Oral Pulse Rate 61 58 L Pulse Rate [Right] 62 Respiratory Rate 16 18 18 Blood Pressure 95/73 L 98/39 L Blood Pressure [Right Arm] 103/54 L Blood Pressure Mean 80 58 Blood Pressure Mean [Right Arm] 70 Blood Pressure Source [Right Arm] Automatic Cuff Blood Pressure Position [Right Arm] Sitting 02 Sat by Pulse Oximetry 98 99 96 Oxygen Delivery Method Room Air 10/30/21 12:00 10/30/21 12:09 10/30/21 12:30 Temperature Temperature Source Pulse Rate 62 58 L 57 L Pulse Rate [Right] Respiratory Rate 18 18 18 Blood Pressure 96/68 L 96/68 L 105/50 L Blood Pressure [Right Arm] Blood Pressure Mean 60 72 68 Blood Pressure Mean [Right Arm] Blood Pressure Source [Right Arm] Blood Pressure Position [Right Arm] 02 Sat by Pulse Oximetry 95 97 97 Oxygen Delivery Method Orders (Tests/Meds): ED MEDICATIONS Discontinued Medications Generic Name Dose Route Start Last Admin Trade Name Freq PRN Reason Stop Dose Admin Hydrocodone Bitart/Acetaminophen 1 tab 10/30/21 11:03 10/30/21 11:10 Apap/Hydrocodone 325mg/7.5mg Tab PO 10/30/21 11:04 1 tab ONCE ONE Administration - CT Data CT Scan: Head, C-Spine, T-Spine, L-Spine Time Received: 13:[address] Reviewed: Yes: I have reviewed the patient's CT results, I have viewed the radiologist's interpretation Preliminary Findings: No Fracture Seen - Reevaluation(s) Time: 13:29 Reevaluation #1: On reevaluation, patient is feeling better. CT imaging did not show any fracture or abnormality. Patient will follow up with PCP in 48 hours. Strict return precautions. Verbalized understanding. Medical Decision Narrative: 76-year-old female presented to the emergency department after an accidental fall. Patient states that she did hit her head is complaining of mild headache. Also back pain. Concern for fracture. Work-up initiated. Fall HPI - General Chief Complaint: Fall Stated Complaint: fall Time Seen by Provider: 10/30/21 10:50 Mode of Arrival: Wheelchair Limitations: No Limitations Description of Symptoms (Recalled from ER Triage Doc. by RN): Pt advises she fell out of her hospital bed last night when she was getting up to go to the bathroom and now has pain in her lower back and tailbone and head. - History of Present Illness HPI Narrative: This is a 76-year-old female presented to the emergency department after an axonal fall. Patient states that she was getting out of bed last night when she lost her balance. She felt onto her back. She is complaining of some low back pain as well as headache. Patient states that she hit
--- NOTE | 2021-10-30 11:25 | PC.NURSE ---
PT to radiology
--- NOTE | 2021-10-30 11:25 | PC.NURSE ---
pt going to Ct
--- NOTE | 2021-10-30 11:46 | PC.NURSE ---
back from ct
== END 2021-10-30 13:35 | disposition home or self-care (01) ==
PROVIDERS: Emergency Provider Emergency Medicine; PCP Family Medicine
DX: S09.90XA Unspecified injury of head, initial encounter (principal); W06.XXXA Fall from bed, initial encounter; Y92.013 Bedroom of single-family (private) house as the place of occurrence of the external cause; I50.9 Heart failure, unspecified; E78.5 Hyperlipidemia, unspecified; I10 Essential (primary) hypertension; J44.9 Chronic obstructive pulmonary disease, unspecified; I25.10 Atherosclerotic heart disease of native coronary artery without angina pectoris; Z87.891 Personal history of nicotine dependence
CPT/HCPCS: 70450; 72125; 72128; 72131; 99282